=== PATIENT | female | born 1950 | race Caucasian/White ===

== ENCOUNTER 2020-12-23 09:22 | Day surgery (SDC) | payer MEDICARE, OTHER, SELFPAY ==
--- NOTE | 2020-12-23 07:39 | W.ANESPRE ---
General Info Date of Service Date Performed: 12/23/20 Height: 5 ft 5.5 in Weight: 108.862 kg Body Mass Index (BMI): 39.3 Surgical Procedure: Operation Date: 12/23/20 12:40 Proposed Procedures Side Surgeon p Cataract Extraction with IOL Implant Left Virgil Barker MD Meds Allergies and Home Medications Allergies Allergy/AdvReac Type Severity Reaction Status Date / Time No Known Allergies Allergy Unverified 12/23/20 10:03 Home Medication Medication Instructions Recorded multivitamin [Multi Vitamin Daily] 1 ea PO DAILY 04/01/14 vitamin E (dl, acetate) 450 mg 1,000 unit PO DAILY 01/01/19 (1,000 unit) capsule Current Visit Medications: Current Medications Generic Name Dose Route Start Last Admin Trade Name Freq PRN Reason Stop Dose Admin Acetaminophen 1,000 mg 12/23/20 06:00 Acetaminophen 500 Mg Tab PO Q4H PRN PRN Miscellaneous Medication 0 ml 12/23/20 06:00 Prednisolone 1%, Moxifloxacin 0.5%, Nepafenac 0.1% 5ml Btl OS DIRECTED MARIUSZ Miscellaneous Medication 0 ml 12/23/20 06:00 Tropicam./Phenyleph. 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 denies Diabetes mellitus History of adverse reaction to anesthesia Per note during hysterectomy 50 years ago Pt. stated didn't wake up for a long time, it took hours for them to wake me up History of endometrial biopsy Hx of pyoderma gangrenosum Impaired fasting glucose Non-pressure ulcer of lower extremity Osteoporosis Pain in left knee Pain, joint, shoulder, right Pain, lower leg Sleep-wake disorder Urinary tract infection Vitamin D deficiency Surgical History Surgical History History of hysterectomy Pt denies; states I had tubal ligation 12/23/20 Hx of tubal ligation Tobacco Smoking/Tobacco Use Status: Former Tobacco Use Tobacco: How many years used: 25 Alcohol Alcohol Intake: never Substance Use Substance use: Never Substance use type: does not use Prental History History 2 Para Hx # Term Pregnancies 2 Multiple births Hx # Pregnancies Ectopic pregnancies AB induced Hx Number of Living Children AB spontaneous Vital Signs and Lab Results Lab Results Blood Type / Crossmatch: No Data to Display Complete Blood Count: No Data to Display Complete Metabolic Panel: No Data to Display Liver Function Panel: No Data to Display Coagulation Panel: No Data to Display Cardiac Panel: No Data to Display Arterial Blood Gas: No Data to Display Venous Blood Gas: No Data to Display Pancreas Panel: No Data to Display Thyroid Panel: No Data to Display Infectious Disease: No Data to Display Blood Cultures: No Data to Display Toxicology Panel: No Data to Display Anesthesia Assessment and Plan Anesthesia History Personal History: No History of Anesthesia Complications Family History: No Family History of Anesthesia Complications Exercise Tolerance Exercise Tolerance: Metabolic Equivalents>4 Pertinent Negatives Pertinent Negatives: No Symptoms of GERD Cardiac & Pulmonary Exam Cardiac Exam: Normal S1/S2 Heart Sounds Pulmonary Exam: Clear Bilateral Breath Sounds Airway Exam Known Difficult Airway: No Mallampati Class: 2 Mouth Opening: Normal (> 3cm) Thyromental Distance: Greater than 3 cm Neck Range of Motion: Full ROM Neck Circumference: Normal Teeth Condition: Removable Dentures/Plates Upper and Removable Dentures/Plates Lower ASA Classification ASA Score: ASA 3 Emergency Case?: No NPO Status NPO Status: NPO Clears >2 hours, Solids >8 hours Anesthesia Plan Resuscitation Status: Full Code Anesthesia Technique: MAC Anesthesia Airway Planned: Natural Airway Monitors Used: Standard Monitors
[2020-12-23] MEDS: Tropicam./Phenyleph. (1/2.5%) 5 ML BTL OS ×3 (09:54→10:10)
[2020-12-23 10:07] VITALS: BP 140/89; PULSE 89; RESP 16; TEMP 36.3; O2SAT 95
[2020-12-23 10:21] VITALS: BMI 39.3
--- NOTE | 2020-12-23 11:01 | W.ANESPOSTOP ---
Postoperative Evaluation Date, Time and Location Date Performed: 12/23/20 Time Performed: 11:55 Patient Location: Day Surgery Unit Vital Signs Most Recent Imported Vital Signs: Most Recent Vital Signs Temp Pulse Resp BP Pulse Ox 36.3 C L 89 16 140/89 95 12/23/20 10:07 12/23/20 10:07 12/23/20 10:07 12/23/20 10:07 12/23/20 10:07 Most Recent Manually Entered Vital Signs: Adult Blood Pressure: 135/68 Heart Rate: 83 Respirations: 16 Oxygen Saturation (%): 98 Temperature (C): 36.8 C Pain Score (0-10 Scale): 0 Pain Score Most Recent Pain Score: Most Recent Pain Score Pain Level 7 12/23/20 10:07 Assessment Mental Status: Awake (Alert & Oriented to Patient Baseline) Airway and Respiratory Function: Patent airway with normal (patient baseline) respiratory exam Cardiovascular Function: Hemodynamically Stable Hydration Status: Adequately Hydrated Nausea & Vomiting: No Nausea or Vomiting Pain: Pt. Denies Any Pain Peripheral Nerve Block: Other (Local by Dr. Barker)
[2020-12-23] MEDS: Tetracaine 0.5% 4 ML BTL OS (11:30)
[2020-12-23] MEDS: Duovisc Viscoelastic System EACH 1 EACH (11:31)
[2020-12-23] MEDS: Balanced Salt Soln.-PLUS 500 ML BAG (11:31)
[2020-12-23] MEDS: Lidocaine 1% Pres-Free 5 ML VIAL (11:32)
[2020-12-23] MEDS: Lidocaine 2% Jelly 6 ML SYR (11:33)
[2020-12-23] MEDS: Povidone-Iodine Ophth 30 ML BTL (11:34)
[2020-12-23 11:54] VITALS: BP 135/68; PULSE 83; RESP 16; TEMP 36.8; O2SAT 98
[2020-12-23 11:55] VITALS: BP 135/68; PULSE 83; RESP 16; TEMPC 36.8; O2SAT 98
--- NOTE | 2020-12-23 11:55 | PDOC.DSDIS_ITS ---
Discharge Plan Disposition Patient Disposition: HOME Condition: Good Discharge Details Attending Provider: Virgil Barker Primary Care Provider: Brian Vaughn [place] Meds and New Rx's Prescriptions: No Action vitamin E (dl, acetate) 1,000 unit capsule 1,000 unit PO DAILY RF: 0 multivitamin [Daily Multi-Vitamin] 1 EACH tablet 1 ea PO DAILY RF: 0 Discharge Instructions Stand Alone Forms: Post-op Block Cataract, Post-op Topical Cataract, Linn Ganey ([facility]U) Discharge Orders Discharge Orders: Discharge Order (Routine); Ordered 12/23/20 Ordered By: Virgil Barker DS: Diagnosis Discharge Diagnosis (1) Nuclear sclerotic cataract of left eye: Status: Resolved (2) Cortical cataract of left eye: Status: Resolved (3) Posterior subcapsular age-related cataract of left eye: Status: Resolved
--- NOTE | 2020-12-23 11:57 | W.PM.OP ---
Date of service: 12/23/20 Time of Service: 11:57 Operative Note Operative Note DATE OF PROCEDURE: 12/23/20 POST-OP DIAGNOSIS: same PROCEDURE: Cataract extraction using phacoemulsification with intraocular lens implant, left eye SURGEON: Virgil Barker ANESTHESIA TYPE: Local By Surgeon and MAC Refer to Anesthesia Record PATHOLOGY: none sent COMPLICATIONS: None Patient was transported to: same day Patient's condition: stable Implants: Gianni and Gianni Vision / [employer] Tecnis [id number] Indications: Progressive decreased vision due to cataract, left eye Procedure Description: CATARACT SURGERY OPERATIVE REPORT PREOPERATIVE DIAGNOSIS: Nuclear/cortical/posterior subcapsular cataract, left eye POSTOPERATIVE DIAGNOSIS: Same OPERATION: Cataract extraction using phacoemulsification with posterior chamber intraocular lens implant, left eye. IOL: IOL Nursing Department Chairperson/Model: [employer] / JACQUELINE Tecnis [id number] IOL Power: + 22.5 diopters IOL Serial Number: [id number] Optic Diameter: 6.0mm Haptic/Overall Diameter: 13.0mm PHACO INFO: RodMicroarraysurion Vision System with OZil and Active Fluidics Cumulative Dispersed Energy (CDE): 10.15 seconds SURGEON: Virgil Barker MD, DEEP ANESTHESIA: Monitored Anesthesia Care (MAC), with local sub-tenon's anesthetic infiltration COMPLICATIONS: None SPECIMENS: None INDICATIONS FOR PROCEDURE: The patient is a 70-year-old lady with history of diminished visual acuity in her left eye secondary to the development of nuclear/cortical/posterior subcapsular cataract. She is significantly symptomatic that she desired cataract surgery and attempt to improve and maximize her vision. PROCEDURE: The correct surgical eye was identified and marked as the left eye and the pupil was dilated in the preoperative area using mydriatics and cycloplegics. The dilated pupil size was 6.0 mm. She elected to proceed without oral sedation. The patient was brought to the operating room where cardiopulmonary monitoring was instituted and surgical time-out was performed, confirming the correct operative eye and IOL power. Topical anesthesia was administered and ophthalmic povidone-iodine 5% was instilled into the conjunctival fornices. Lidocaine gel was applied to the cornea and the isra-ocular area was prepped with Betadine 10% solution and draped in the usual sterile fashion for intraocular surgery, including an aperture drape. A Tegaderm transparent film dressing was cut in half and used to cover the lashes and lid margins. Care was taken to sequester the lashes and lid margins under the Tegaderm dressing. A lid speculum was placed between the lids of the operative eye and the Susanne-Matty operating microscope was maneuvered into position. Clare scissors were then used to make a conjunctival buttonhole approximately 6mm posterior to the limbus in the inferonasal quadrant. Blunt dissection was carried out to expose bare sclera, and a blunt-tipped sub-tenon?s anesthesia cannula was introduced and passed posteriorly along the globe where non-preserved plain lidocaine was injected into posterior sub-Tenon?s space. A sideport knife was used to make a paracentesis port superior/superiortemporally. Intraocular phenylephrine/lidocaine was injected into the anterior chamber. The anterior chamber was then filled with viscoelastic. A 2.4mm keratome knife was used to create a half-thickness groove at the limbus and then to construct a three-plane near-clear corneal tunnel extending 2.0mm into clear cornea in the temporal position. . A flap was raised on the anterior capsule and capsulorhexis forceps were used to complete a continuous curvilinear capsulorhexis of 5.5 mm. Balanced salt solution was then used to perform cortical cleaving hydrodissection and nuclear hydrodelineation until the lens could be freely rotated within the capsular bag. The lens nucleus was then disassembled and removed within the capsular bag and iris plane using phacoemulsification. Residual cortical material was removed using the 45-degree angled silicone I/A tip with 0.3mm port. The posterior capsule was carefully polished to remove as much residual lens epithelial cells as safely possible. The capsular bag was then inflated and the anterior chamber deepened with viscoelastic. The lens implant described above was inserted into the capsular bag using the JACQUELINE [place] Injector. A Kuglen hook was used to dial the IOL into position. Residual viscoelastic was then removed first from posterior to the IOL, then from the anterior chamber using the I/A handpiece. The lens implant was noted to center nicely within the capsular bag. The incisions were stromally hydrated, and the anterior chamber was reformed using BSS. Then 0.5cc of moxifloxacin 1.0mg/ml were injected into the capsular bag and anterior chamber. The incisions were checked with a Weck spear and found to be secure. Several drops of ophthalmic povidone-iodine 5% were then applied to the eye followed by two drops of Imprimis combination prednisolone/moxifloxacin/nepafenac solution. The drapes were removed and a clear plastic protective eye shield was placed over the eye. The patient was then returned to Same Day Surgery in stable condition.
== END 2020-12-23 12:09 | disposition home or self-care (01) ==
PROVIDERS: PCP Neuromusculoskeletal Medicine & OMM; Visit Provider Ophthalmology
PROC: (CPT 66984; principal; 2020-12-23 12:30)
DX: H25.042 Posterior subcapsular polar age-related cataract, left eye (principal); E11.9 Type 2 diabetes mellitus without complications
CPT/HCPCS: 66984; V2632

== ENCOUNTER 2021-01-06 06:19 | Day surgery (SDC) | payer MEDICARE, OTHER, SELFPAY ==
[2021-01-06] MEDS: Tropicam./Phenyleph. (1/2.5%) 5 ML BTL OD ×3 (06:38→06:51)
[2021-01-06 06:40] VITALS: BP 141/75; PULSE 91; RESP 18; TEMP 36.3; O2SAT 95
--- NOTE | 2021-01-06 07:08 | W.ANESPRE ---
General Info Date of Service Date Performed: 01/06/21 Height: 5 ft 0.5 in Weight: 109.1 kg Body Mass Index (BMI): 46.2 Surgical Procedure: Operation Date: 01/06/21 07:40 Proposed Procedures Side Surgeon p Cataract Extraction with IOL Implant Right Virgil Barker MD Meds Allergies and Home Medications Allergies Allergy/AdvReac Type Severity Reaction Status Date / Time No Known Allergies Allergy Unverified 01/06/21 06:36 Home Medication Medication Instructions Recorded multivitamin [Multi Vitamin Daily] 1 ea PO DAILY 04/01/14 vitamin E (dl, acetate) 450 mg 1,000 unit PO DAILY 01/01/19 (1,000 unit) capsule Current Visit Medications: Current Medications Generic Name Dose Route Start Last Admin Trade Name Freq PRN Reason Stop Dose Admin Acetaminophen 1,000 mg 01/06/21 06:00 Acetaminophen 500 Mg Tab PO Q4H PRN PRN Miscellaneous Medication 0 ml 01/06/21 06:00 Prednisolone 1%, Moxifloxacin 0.5%, Nepafenac 0.1% 5ml Btl OD DIRECTED MARIUSZ Miscellaneous Medication 0 ml 01/06/21 06:00 01/06/21 06:51 Tropicam./Phenyleph. 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 denies Diabetes mellitus History of adverse reaction to anesthesia Per note during hysterectomy 50 years ago Pt. stated didn't wake up for a long time, it took hours for them to wake me up History of endometrial biopsy Hx of pyoderma gangrenosum Impaired fasting glucose Non-pressure ulcer of lower extremity Osteoporosis Pain in left knee Pain, joint, shoulder, right Pain, lower leg Sleep-wake disorder Urinary tract infection Vitamin D deficiency Surgical History Surgical History (Updated 01/06/21 @ 06:36 by Sylvia Prado) History of hysterectomy Pt denies; states I had tubal ligation 12/23/20 Hx of cataract surgery Hx of tubal ligation Tobacco Smoking/Tobacco Use Status: Former Tobacco Use Tobacco: How many years used: 25 Alcohol Alcohol Intake: never Substance Use Substance use: Never Substance use type: does not use Prental History History 2 Para Hx # Term Pregnancies 2 Multiple births Hx # Pregnancies Ectopic pregnancies AB induced Hx Number of Living Children AB spontaneous Vital Signs and Lab Results Vital Signs Most Recent Vital Signs in EMR: Most Recent Vital Signs Temp Pulse Resp BP Pulse Ox 36.3 C L 91 H 18 141/75 H 95 01/06/21 06:40 01/06/21 06:40 01/06/21 06:40 01/06/21 06:40 01/06/21 06:40 Lab Results Blood Type / Crossmatch: No Data to Display Complete Blood Count: No Data to Display Complete Metabolic Panel: No Data to Display Liver Function Panel: No Data to Display Coagulation Panel: No Data to Display Cardiac Panel: No Data to Display Arterial Blood Gas: No Data to Display Venous Blood Gas: No Data to Display Pancreas Panel: No Data to Display Thyroid Panel: No Data to Display Infectious Disease: No Data to Display Blood Cultures: No Data to Display Toxicology Panel: No Data to Display Anesthesia Assessment and Plan Anesthesia History Personal History: No History of Anesthesia Complications Family History: No Family History of Anesthesia Complications Exercise Tolerance Exercise Tolerance: Metabolic Equivalents>4 Pertinent Negatives Pertinent Negatives: No Symptoms of GERD, No Major Cardiovascular Symptoms or Complaints, No Major Pulmonary Symptoms or Complaints and No History of CVA/TIA Cardiac & Pulmonary Exam Cardiac Exam: Normal S1/S2 Heart Sounds Pulmonary Exam: Clear Bilateral Breath Sounds Airway Exam Known Difficult Airway: No Mallampati Class: 2 Mouth Opening: Normal (> 3cm) Thyromental Distance: Greater than 3 cm Neck Range of Motion: Full ROM Neck Circumference: Normal Teeth Condition: Removable Dentures/Plates Upper and Removable Dentures/Plates Lower ASA Classification ASA Score: ASA 2 Emergency Case?: No NPO Status NPO Status: NPO Clears >2 hours, Solids >8 hours Anesthesia Plan Resuscitation Status: Full Code Anesthesia Technique: MAC Anesthesia Airway Planned: Natural Airway Monitors Used: Standard Monitors
[2021-01-06 07:10] VITALS: BMI 46.2
[2021-01-06] MEDS: Lidocaine 1% Pres-Free 5 ML VIAL (07:30)
[2021-01-06] MEDS: Balanced Salt Soln.-PLUS 500 ML BAG (07:32)
[2021-01-06] MEDS: Povidone-Iodine Ophth 30 ML BTL (07:33)
[2021-01-06] MEDS: Duovisc Viscoelastic System EACH 1 EACH (07:33)
[2021-01-06] MEDS: Lidocaine 2% Jelly 6 ML SYR (07:34)
[2021-01-06] MEDS: Tetracaine 0.5% 4 ML BTL OD (07:35)
--- NOTE | 2021-01-06 07:56 | W.PM.DSUDISC ---
Discharge Plan Disposition Patient Disposition: HOME Condition: Good Discharge Details Attending Provider: Virgil Barker Primary Care Provider: Brian Vaughn [place] Meds and New Rx's Prescriptions: No Action vitamin E (dl, acetate) 1,000 unit capsule 1,000 unit PO DAILY RF: 0 multivitamin [Daily Multi-Vitamin] 1 EACH tablet 1 ea PO DAILY RF: 0 Discharge Instructions Stand Alone Forms: Post-op Topical Cataract, Linn Adrian ([facility]) Discharge Orders Discharge Orders: Discharge Order (Routine); Ordered 01/06/21 Ordered By: Virgil Barker DS: Diagnosis Discharge Diagnosis (1) Nuclear sclerotic cataract of right eye: Status: Acute (2) Cortical cataract of right eye: Status: Acute
--- NOTE | 2021-01-06 07:57 | ROE_ITS ---
Date of service: 01/06/21 Time of Service: 07:57 Operative Note Operative Note DATE OF PROCEDURE: 01/06/21 PRE-OP DIAGNOSIS: Nuclear/cortical cataract, right eye POST-OP DIAGNOSIS: same PROCEDURE: Cataract extraction using phacoemulsification with intraocular lens implant, right eye SURGEON: Virgil Barker ANESTHESIA TYPE: Local By Surgeon and MAC Refer to Anesthesia Record ESTIMATED BLOOD LOSS: 0 PATHOLOGY: none sent COMPLICATIONS: None Patient was transported to: same day Patient's condition: stable Implants: Gianni & Gianni/JACQUELINE Tecnis [id number] Indications: Progressive visual loss due to cataract, right eye Procedure Description: CATARACT SURGERY OPERATIVE REPORT PREOPERATIVE DIAGNOSIS: 1. Nuclear/cortical cataract, right eye POSTOPERATIVE DIAGNOSIS: Same OPERATION: 1. Cataract extraction using phacoemulsification with posterior chamber intraocular lens implant, right eye. IOL: IOL Corn Husk Baler/Model: Gianni & Gianni / JACQUELINE Tecnis ZCB00 IOL Power: + 23.0 diopters IOL Serial Number: [id number] Optic Diameter: 6.0mm Haptic/Overall Diameter: 13.0mm PHACO INFO: Rod [employer]IL[employer]ion Vision System with OZil and Active Fluidics Cumulative Dispersed Energy (CDE): 8.89 seconds SURGEON: Virgil Barker MD, DEEP ANESTHESIA: Monitored Anesthesia Care (MAC), with local sub-tenon's anesthetic infiltration COMPLICATIONS: None SPECIMENS: None INDICATIONS FOR PROCEDURE: The patient is a 70-year-old lady with history of diminished visual acuity in her right eye secondary to the development of nuclear and cortical cataract. She has already undergone cataract surgery in the left eye and is doing well postoperatively. She now presents for cataract surgery in the right eye. PROCEDURE: The correct surgical eye was identified and marked as the right eye and the pupil was dilated in the preoperative area using mydriatics and cycloplegics. The dilated pupil size was 7.5 mm. She elected to proceed without oral sedation. The patient was brought to the operating room where cardiopulmonary monitoring was instituted and surgical time-out was performed, confirming the correct operative eye and IOL power. Topical anesthesia was administered and ophthalmic povidone-iodine 5% was instilled into the conjunctival fornices. Lidocaine gel was applied to the cornea and the isra-ocular area was prepped with Betadine 10% solution and draped in the usual sterile fashion for intraocular surgery, including an aperture drape. A Tegaderm transparent film dressing was cut in half and used to cover the lashes and lid margins. Care was taken to sequester the lashes and lid margins under the Tegaderm dressing. A lid speculum was placed between the lids of the operative eye and the Susanne-Matty operating microscope was maneuvered into position. Clare scissors were then used to make a conjunctival buttonhole approximately 6mm posterior to the limbus in the inferonasal quadrant. Blunt dissection was carried out to expose bare sclera, and a blunt-tipped sub-tenon?s anesthesia cannula was introduced and passed posteriorly along the globe where non- preserved plain lidocaine was injected into posterior sub-Tenon?s space. A sideport knife was used to make a paracentesis port inferotemporally. Intraoc ular phenylephrine/lidocaine was injected into the anterior chamber. The anterior chamber was filled with viscoelastic. A 2.4mm keratome knife was used to create a half-thickness groove at the limbus and then to construct a three- plane near-clear corneal tunnel extending 2.0mm into clear cornea superiortemporally. A flap was raised on the anterior capsule and capsulorhexis forceps were used to complete a continuous curvilinear capsulorhexis of 5.0 mm. Balanced salt solution was then used to perform cortical cleaving hydrodissection and nuclear hydrodelineation until the lens could be freely rotated within the capsular bag. The lens nucleus was then disassembled and removed within the capsular bag and iris plane using phacoemulsification. Residual cortical material was removed using the I/A handpiece. The posterior capsule was carefully polished to remove as much residual lens epithelial cells as safely possible. The capsular bag was then inflated and the anterior chamber deepened with viscoelastic. The lens implant described above was inserted into the capsular bag using the JACQUELINE [place] Injector. A Kuglen hook was used to dial the IOL into position. Residual viscoelastic was then removed first from posterior to the IOL, then from the anterior chamber using the I/A handpiece. The lens implant was noted to center nicely within the capsular bag. The incisions were stromally hydrated, and the anterior chamber was reformed using BSS. Then 0.5cc of moxifloxacin 1.0mg/ml were injected into the capsular bag and anterior chamber. The incisions were checked with a Weck spear and found to be secure. Several drops of ophthalmic povidone-iodine 5% were then applied to the eye followed by two drops of Imprimis combination prednisolone/moxifloxacin/nepafenac solution. The drapes were removed and a clear plastic protective eye shield was placed over the eye. The patient was then returned to Same Day Surgery in stable condition.
--- NOTE | 2021-01-06 08:01 | W.ANESPOSTOP ---
Postoperative Evaluation Date, Time and Location Date Performed: 01/06/21 Time Performed: 08:01 Patient Location: Day Surgery Unit Vital Signs Most Recent Imported Vital Signs: Most Recent Vital Signs Temp Pulse Resp BP Pulse Ox 36.3 C L 91 H 18 141/75 H 95 01/06/21 06:40 01/06/21 06:40 01/06/21 06:40 01/06/21 06:40 01/06/21 06:40 Most Recent Manually Entered Vital Signs: Adult Pain Score Most Recent Pain Score: Most Recent Pain Score Pain Level 0 01/06/21 06:40
[2021-01-06 08:05] VITALS: BP 140/88; PULSE 85; RESP 16; TEMP 36.8; O2SAT 97
--- NOTE | 2021-01-06 08:08 | W.ANESPOSTOP ---
Postoperative Evaluation Date, Time and Location Date Performed: 01/06/21 Time Performed: 08:08 Patient Location: Day Surgery Unit Vital Signs Most Recent Imported Vital Signs: Most Recent Vital Signs Temp Pulse Resp BP Pulse Ox 36.8 C 85 16 140/88 97 01/06/21 08:05 01/06/21 08:05 01/06/21 08:05 01/06/21 08:05 01/06/21 08:05 Most Recent Vital Signs Temp Pulse Resp BP Pulse Ox 36.3 C L 91 H 18 141/75 H 95 01/06/21 06:40 01/06/21 06:40 01/06/21 06:40 01/06/21 06:40 01/06/21 06:40 Pain Score Most Recent Pain Score: Most Recent Pain Score Pain Level 0 01/06/21 08:05 Assessment Mental Status: Awake (Alert & Oriented to Patient Baseline) Airway and Respiratory Function: Patent airway with normal (patient baseline) respiratory exam Cardiovascular Function: Hemodynamically Stable Hydration Status: Adequately Hydrated Nausea & Vomiting: No Nausea or Vomiting Pain: Pt. Denies Any Pain Peripheral Nerve Block: Patient did not receive a nerve block
== END 2021-01-06 08:18 | disposition home or self-care (01) ==
PROVIDERS: PCP Neuromusculoskeletal Medicine & OMM; Visit Provider Ophthalmology
PROC: (CPT 66984; principal; 2021-01-06 07:30)
DX: H25.11 Age-related nuclear cataract, right eye (principal); E11.9 Type 2 diabetes mellitus without complications
CPT/HCPCS: 66984; V2632

== ENCOUNTER 2021-09-29 15:51 | Outpatient (REF) | payer MEDICARE, OTHER, SELFPAY ==
--- NOTE | 2021-09-29 13:10 | PAPFT_PTH ---
PATIENT: India Brown LOC: [facility] U#:[id number] AGE/SX: 70/F ROOM: RE09/29/[address]: Alma Archer DO : 1950 BED: DIS: 09/29/2021 SPEC #: [id number] RECD: 09/29/21 17:51 STATUS: AMY REQ #: [id number] LAURA: 09/29/21 13:[address]: Alma Archer DEPT: [facility] Cytology RECD BY: Miryam Paiz ENTERED: 09/29/21 17:51 SP TYPE: PAPFT OTHR DR: Brian Vaughn Tissues: 1 - CX/ENDOCX FOR PAP SMEARS Procedures: PAP THIN PREP/[facility] Screening Comments: [id number] (UNSATISFACTORY FOR EVALUATION)
--- OUTSIDE RECORDS SUMMARY | 2021-09-29 16:26 | XMS_ITS ---
:1950 Author Care Team Providers Name Role Phone FELIZ MOREJON DO Primary Care Provider [phone] Allergies Code Code System Name Reaction Severity Status Onset Ragweed ? ? Active ? Pollen NKDA ? Medications Name Status Start Date Stop Date ? ? CellCept 500 mg tablet Completed 01/31/2021 1 Take 1 tablet twice a day by oral route. cephalexin 500 mg capsule Completed ? 2017 cephalexin 500 mg tablet Completed ? 021 Take 2 tablets every day by oral route. clindamycin HCl 300 mg capsule Completed 07/21/2015 0 07/31/2015 1 (one) Capsule Capsule: every six hours clobetasol 0.05 % topical cream Active ? Not available APPLY A THIN LAYER TO THE AFFECTED AREA(S) BY TOPICAL ROUTE 2 T IMES PER DAY CoQ-10 Completed ? 10/29/2017 cyclobenzaprine 5 mg tablet Completed 09/07/201412/16 1 (one) Tablet: qhs - at bedtime as needed. doxycycline monohydrate 100 mg capsule Completed ? 05/08/2019 1 daily fluticasone propionate 50 Completed ? 2019 mcg/actuation nasal spray,suspension furosemide 20 mg tablet Active ? Not avai lable lidocaine-prilocaine 2.5 %-2.5 % topical cream Completed ? 11/07/2018 topically prn Macrobid 100 mg capsule Completed ? 10/12/19 21 Take 1 capsule every 12 hours by oral route for 7 days. magnesium Completed ? 12/14/2020 165 mg daily multivitamin Completed ? 12/14/2020 daily mupirocin 2 % topical ointment Completed ? 0 10/11/2020 Percocet 5 mg-325 mg tablet Completed 09/05/20152 12/2015 1 (one) Tablet Tablet: qhs - at bedtime prednisone 20 mg tablet Completed ? 01/02/20 18 sulfamethoxazole 800 mg-trimethoprim 160 mg tablet Completed 08/10/2020 08/10/2020 TAKE 1 TABLET BY MOUTH EVERY 12 HOURS FOR 5 DAYS Temovate 0.05 % topical ointment Completed ? 10/11/2020 1 shea Ointment Ointment: bid - twice daily vitamin B complex Completed ? 12/14/2020 1 daily Vitamin C Active ? Not available 1 qd Vitamin D3 Active ? Not available 1 qd zinc Completed ? 12/14/2020 22 mg Problems Name Status Onset Date Source ? 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 Chronic Fatigue Syndrome Active ? History Impacted Cerumen Unknown ? History Urinary Tract Infectious Disease Unknown ? History Non-pressure Ulcer Lower Limb Unknown ? Hi story Spasm Unknown ? History Pain in Lower Limb Unknown ? History Sleep-wake Schedule Disorder Active ? His tory Chest Pain Unknown ? History Impaired Fasting Glycemia Unknown ? Histor y Traumatic or Non-traumatic Injury Unknown ? History Counseling Unknown ? History Adult Health Examination Unknown ? History Clinical Finding Unknown ? History Cellulitis of Right Lower Limb Unknown ? H istory Procedure by Method Unknown ? History Disorder of Soft Tissue Unknown ? History Pain of Right Shoulder Joint Active ? His tory Specialized Medical Examination Unknown ? History Bleeding Unknown ? History Pain in Left Knee Unknown ? History Procedures Date Name Performed by ? 01/06/2021 Cataract Surgery Information not joceline rob 12/23/2020 Surgery of Cataract of Left Eye Informat ion not available 04/17/1976 Tubal Ligation Information not av lable 10/09/2018 MAMMO, Screening, Tomosynthesis, [facility] Radiology (Internal) Bilateral [address] [place] [address] (Work Place) 12/07/2019 XR, Knee, 3 View [facility] Radiology (Internal) [address] [place] [address] (Work Place) 07/14/2020 MAMMO, Screening, Tomosynthesis, [facility] Radiology (Internal) Bilateral [address] [place] [address] (Work Place) 12/14/2020 XR, Foot, 3 or More View [facility] H ospital Radiology (Internal) [address] [place] [id number] (Work Place) Results Lab Results Date Name Specimen Result Interpretation Description Value Range Status Address ? 07/26/2021 HbA1C BLD High Ha1C 6.7 % 4.0-6.0 % [place] (Hemoglobin Hospi licha Lab a1C), Blood (Inte rnal): [address] 07/26/2021 Venipuncture Blood ? Locati Left ? ? P_nc Primary venous on Antecu Care bital [place]: [address], [place] ? ? Blood ? Needle 21g ? ? P_nc Prim emma venous Vacuta Care iner [place]: [address], [place] ? ? Blood ? Number 1 ? ? P_nc Prim emma venous of Care Attempt [place] s: [address], [place] ? ? Blood ? Succes Yes ? ? P_nc Prim emma venous sful Care [place]: [address], [place] ? ? Blood ? Dressi Pressu ? ? P_nc Prim emma venous ng re Care Band-a [place] s: [address], [place] 04/26/2021 HbA1C BLD High Ha1C 6.3 % 4.0-6.0 % Final [place] (Hemoglobin Hospi licha Lab a1C), Blood (Inte rnal): [address] 04/26/2021 Venipuncture ? Locati Right ? ? P_nc Primary on Antecu Care bital [place]: [address], [place] ? ? ? Needle 21g ? ? P_nc Prim emma Vacuta Care iner [place]: [address], [place] ? ? ? Number 1 ? ? P_nc Prim emma of Care Attempt [place] s: [address], [place] ? ? ? Succes Yes ? ? P_nc Prim emma sful Care [place]: [address], [place] ? ? ? Dressi Pressu ? ? P_nc Prim emma ng re Care Band-a [place] s: [address], [place] ? ? ? Initia HJ ? ? P_nc Prim emma ls Care [place]: [address], [place] 01/24/2021 HbA1C BLD High Ha1C 6.8 % 4.0-6.0 % Final [facility] (Hemoglobin Hospi licha Lab a1C), Blood (Inte rnal): [address] 01/24/2021 Venipuncture Blood ? Locati Left ? ? P_nc Primary venous on Antecu Care bital [place]: [address], [place] ? ? Blood ? Needle 21g ? ? P_nc Prim emma venous Vacuta Care iner [place]: [address], [place] ? ? Blood ? Number 1 ? ? P_nc Prim emma venous of Care Attempt [place] s: [address] [facility], [place] ? ? Blood ? Succes Yes ? ? P_nc Prim emma venous sful Care [place]: [address], [place] ? ? Blood ? Dressi Pressu ? ? P_nc Prim emma venous ng re Care Band-a [place] s: [address], [place] 12/14/2020 CRP, High S High Rcrp 1.04 0.10-0.30 Final [facility] Sensitivity, mg/dL mg/dL Hosp ital Lab Serum or Plasma ( Internal): [address] 12/14/2020 Rf (Rheumatoid BLD ? Rf negati negative < F inal [place] Factor), Serum ve < 10 [IU]/mL Hospital Lab 10 (Internal) : [IU]/m [address] 12/14/2020 ESR BLD ? Esr 30 0-30 mm/h Final [facility] (Erythrocyte mm/h Hosp ital Lab Sedimentation (In ternal): Rate), Blood [address] 12/14/2020 MARCIE S ? MARCIE negati negative Final [facility] (Antinuclear Interpr ve Hos pital Lab Antibodies) etation (Int ernal): Screen, Serum [address] 12/14/2020 Anca, Serum S ? Anca negati negative Final [facility] Interpr ve Hospital Lab etation (Internal ): [address] 12/14/2020 Cyclic S ? Cyclic <15.6 <20.0 [facility] Citrullinated Citrull U (negative) Hospital Lab Peptide Ab, inated U (Inte rnal): Quant Peptide [address] Immunoassay, Ab, S [facility] Serum 12/14/2020 Venipuncture Blood ? Locati Left ? ? P_nc Primary venous on Antecu Care bital [place]: [address], [place] ? ? Blood ? Needle 21g ? ? P_nc Prim emma venous Vacuta Care iner [place]: [address], [place] ? ? Blood ? Number 1 ? ? P_nc Prim emma venous of Care Attempt [place] s: [address], [place] ? ? Blood ? Succes Yes ? ? P_nc Prim emma venous sful Care [place]: [address], [place] ? ? Blood ? Dressi Pressu ? ? P_nc Prim emma venous ng re Care Band-a [place] s: [address], [place] 10/10/2020 HbA1C BLD High Ha1C 6.2 % 4.0-6.0 % Final [facility] (Hemoglobin Hospi licha Lab a1C), Blood (Inte rnal): [address] 10/06/2020 Urinalysis, UR ? UA-col yellow pale Final [facility] Dipstick, or yellow Hospita l Lab Reflex Micro (Int ernal): [address] ? ? UR ABNORMA UA-shea hazy clear Final [facility] untry ear Hospital L ab (Internal) : [address] ? ? UR ? UA-spe 1.025 1.003-1.03 [facility] c Grav 5 Hospital L ab (Internal) : [address] ? ? UR ? UA-pH 6.0 4.6-8.0 [facility] ntry [pH] [pH] Hospital L ab (Internal) : [address] ? ? UR ABNORMA UA-aleta trace negative [facility] (Internal) : [address] ? ? UR ? UA-nit negati negative Final [facility] ountry rite ve Hospital ab (Internal) : [address] ? ? UR ? UA-pro negati negative Final [facility] ountry t ve Hospital ab (Internal) : [address] ? ? UR ? UA-glu negati negative Final [facility] ountry c ve [facility] (Internal) : [address] ? ? UR ? UA-ket negati negative Final [facility] ountry one ve [facility] ab (Internal) : [address] ? ? UR ? UA-uro normal normal Final [place] [facility]ha [facility] ab (Internal) : [address] ? ? UR ? UA-vibha negati negative Final [facility] ountry i ve [facility] ab (Internal) : [address] ? ? UR ABNORMA UA-blo modera negative Final [facility] L od te [facility] ab (Internal) : [address] 10/06/2020 Urinalysis, UR ABNORMA UA-WBC 5-10 0-3 [hpf] [facility] Microscopic L [hpf] Hospi licha Lab (Internal) : [address] ? ? UR ABNORMA UA-RBC 10-25 0-2 [hpf] Final [facility] L [hpf] Hospital ab (Internal) : [address] ? ? UR ? UA-demario rare none seen Final [facility] teria [hpf] [hpf] Hospital ab (Internal) : [address] ? ? UR ? UA-epi rare none seen Final [facility] thelial [hpf] [hpf] Hospital Lab (Internal) : [address] ? ? UR ? UA-muc none none seen Final [facility] us seen [hpf] Hospital ab [hpf] (Internal) : [address] ? ? UR ? Amorph rare ? Final [facility] Cryst [hpf] Hospital ab (Internal) : [address] 10/06/2020 Culture ([place] UR ? Final microb ? Snehal l [place] Count), Urine iology Hos pital Lab result (Internal) : s [address] 10/06/2020 Urinalysis, UR ABNORMA UA-WBC 5-10 0-3 [hpf] Fin al [facility] Microscopic L [hpf] Hospi licha Lab (Internal) : [address] ? ? UR ABNORMA UA-RBC 10-25 0-2 [hpf] Final [facility] L [hpf] Hospital L ab (Internal) : [address] ? ? UR ? UA-demario rare none seen Final [facility] teria [hpf] [hpf] Hospital L ab (Internal) : [address] ? ? UR ? UA-epi rare none seen Final [facility] thelial [hpf] [hpf] Hospital Lab (Internal) : [address] ? ? UR ? UA-muc none none seen Final [facility] us seen [hpf] Hospital L ab [hpf] (Internal) : [address] ? ? UR ? Ca Ox rare ? Correcte [place] untry Cryst [hpf] d Hospital L ab (Internal) : [address] 08/22/2020 Colon Cancer Stool ? Cologu negati not Final Exact Screening, jena ve applicable Ne iences Stool Result Laboratori es Reporta (Cologuar d ble Orders Onl y): [address] , Randi 08/10/2020 HbA1C BLD High Ha1C 6.5 % 4.0-6.0 % Final [facility] (Hemoglobin Hospi licha Lab a1C), Blood (Inte rnal): [address] 08/10/2020 Venipuncture ? Locati Left ? ? P_nc Primary on Antecu Care bital [place]: [address], [place] ? ? ? Needle 21g ? ? P_nc Prim emma Vacuta Care iner [place]: [address], [place] ? ? ? Number 1 ? ? P_nc Prim emma of Care Attempt [place] s: [address], [place] ? ? ? Succes Yes ? ? P_nc Prim emma sful Care [place]: [address], [place] ? ? ? Dressi Pressu ? ? P_nc Prim emma ng re Care Band-a [place] s: [address], [place] ? ? ? Initia hj ? ? P_nc Prim emma ls Care [place]: [address], [place] 07/29/2020 Culture, MISC ? Final microb ? Final [facility] Superficial iology Hospi licha Lab Wound result (Internal) : s [address] 05/10/2020 Urinalysis, UR ? UA-col pale pale Final [facility] Dipstick, or yellow yellow Hospita l Lab Reflex Micro (Int ernal): [address] ? ? UR ? UA-shea clear clear Final [facility] ntry ear Hospital L ab (Internal) : [address] ? ? UR ? UA-spe 1.015 1.003-1.03 Final [facility] c Grav 5 Hospital L ab (Internal) : [address] ? ? UR ? UA-pH 6.5 4.6-8.0 Final [facility] ntry [pH] [pH] Hospital L ab (Internal) : [address] ? ? UR ABNORMA UA-aleta trace negative Final [facility] L k Est Hospital L ab (Internal) : [address] ? ? UR ? UA-nit negati negative Final [facility] ountry rite Hospital L ab (Internal) : [address] ? ? UR ? UA-pro negati negative Final [facility] ountry t ve Hospital L ab (Internal) : [address] ? ? UR ? UA-glu negati negative Final [facility] ountry c Hospital L ab (Internal) : [address] ? ? UR ? UA-ket negati negative Final [facility] ountry one Hospital L ab (Internal) : [address] ? ? UR ? UA-uro normal normal Final [place] [facility] Hospital L ab (Internal) : [address] ? ? UR ? UA-vibha negati negative Final [facility] i ve Hospital L ab (Internal) : [address] ? ? UR ABNORMA UA-blo modera negative Final [place] [facility] L od te Hospital L ab (Internal) : [address] 05/10/2020 CMP, Serum or S High g/r 113 74-106 Final [place] Plasma mg/dL mg/dL Hospital L ab (Internal) : [address] ? ? S ? Bun 13 7-17 mg/dL Final [place] [facility] mg/dL Hospital L ab (Internal) : [address] ? ? S ? Crea 0.60 0.52-1.04 Final [facility] mg/dL mg/dL Hospital L ab (Internal) : [address] ? ? S ? Ca 9.9 8.4-10.2 Final [facility] mg/dL mg/dL Hospital L ab (Internal) : [address] ? ? S ? Na 138 137-145 Final [facility] mmol/L mmol/L Hospital L ab (Internal) : [address] ? ? S ? K 4.4 3.5-5.1 Final [facility] mmol/L mmol/L Hospital L ab (Internal) : [address] ? ? S ? Cl 102 98-107 Final [facility] mmol/L mmol/L Hospital L ab (Internal) : [address] ? ? S ? Tco2 29.0 22.0-30.0 Final [facility] mmol/L mmol/L Hospital L ab (Internal) : [address] ? ? S ? Tp 8.2 6.3-8.2 Final [facility] g/dL g/dL Hospital L ab (Internal) : [address] ? ? S ? Alb 4.4 3.5-5.0 Final [facility] g/dL g/dL Hospital L ab (Internal) : [address] ? ? S ? Tbil 0.3 0.2-1.3 Final [facility] mg/dL mg/dL Hospital L ab (Internal) : [address] ? ? S ? Alp 93 U/L 38-126 U/L Final [facility] Hospital L ab (Internal) : [address] ? ? S ? Alt 51 U/L 9-52 U/L Final [facility] unt (Sgpt) Hospital L ab (Internal) : [address] ? ? S High Ast 41 U/L 14-36 U/L Final [facility] ount (Sgot) Hospital L ab (Internal) : [address] 05/10/2020 CBC W/ Auto BLD ? Wbc 7.5 5.0-10.0 Final [facility] Diff 10*3/u 10*3/uL Hospital Lab L (Internal) : [address] ? ? BLD ? Rbc 4.83 4.10-5.30 Final [facility] ountry 10*6/u 10*6/uL Hospital Lab L (Internal) : [address] ? ? BLD ? Hgb 14.3 12.0-16.0 Final [facility] ountry g/dL g/dL Hospital L ab (Internal) : [address] ? ? BLD ? Hct 43.7 % 37.0-47.0 Final [facility] ount % Hospital L ab (Internal) : [address] ? ? BLD ? Mcv 90.5 80.0-96.0 Final [facility] ountry fL fL Hospital L ab (Internal) : [address] ? ? BLD ? Mch 29.6 26.0-32.0 Final [facility] ountry pg pg Hospital L ab (Internal) : [address] ? ? BLD ? Mchc 32.7 31.0-35.0 Final [facility] ountry g/dL g/dL Hospital L ab (Internal) : [address] ? ? BLD ? Rdw 12.8 % 11.5-14.5 Final [facility] ountry % Hospital L ab (Internal) : [address] ? ? BLD ? Plt 262 130-450 Final [facility] ntry 10*3/u 10*3/uL Hospital Lab L (Internal) : [address] ? ? BLD ? Anc 4.23 ? Final [facility] try 10*3/u Hospital L ab L (Internal) : [address] ? ? BLD ? Nlr 1.59 0.00-3.20 Final [facility] L ab (Internal) : [address] ? ? BLD ? Neutro 56.2 % 40.0-75.0 Final [facility] Hospital L ab (Internal) : [address] ? ? BLD ? Lymph 35.3 % 20.0-50.0 Final [facility] Hospital L ab (Internal) : [address] ? ? BLD ? [place] 6.8 % 2.0-10.0 % [facility] L ab (Internal) : [address] ? ? BLD Low Eos 0.9 % 1.0-6.0 % Final [facility] L ab (Internal) : [address] ? ? BLD ? Baso 0.5 % 0.0-1.0 % [facility] L ab (Internal) : [address] ? ? BLD ? Ig 0.3 % 0.0-0.9 % [facility] L ab (Internal) : [address] 05/10/2020 Urinalysis, UR ABNORMA UA-WBC 3-5 0-3 [hpf] Fin al [facility] Microscopic L [hpf] Hospi licha Lab (Internal) : [address] ? ? UR ABNORMA UA-RBC 3-5 0-2 [hpf] [facility] L [hpf] Hospital L ab (Internal) : [address] ? ? UR ? UA-demario rare none seen Final [facility] teria [hpf] [hpf] Hospital L ab (Internal) : [address] ? ? UR ? UA-epi rare none seen Final [facility] thelial [hpf] [hpf] Hospital Lab (Internal) : [address] ? ? UR ? UA-muc none none seen Final [facility] us seen [hpf] Hospital L ab [hpf] (Internal) : [address] [facility] 05/10/2020 HbA1C BLD High Ha1C 6.5 % 4.0-6.0 % Final [facility] (Hemoglobin Hospi licha Lab a1C), Blood (Inte rnal): [address] [facility] 05/10/2020 Culture ([place] UR ? Final microb ? Snehal l [place] Count), Urine iology Hos pital Lab result (Internal) : s [address] [facility] 10/30/2019 HbA1C BLD High Ha1C 6.4 % 4.0-6.0 % Final [facility] (Hemoglobin Hospi licha Lab a1C), Blood (Inte rnal): [address] [facility] 05/08/2019 CRP, High S High Rcrp 0.79 0.10-0.30 Final [facility] Sensitivity, mg/dL mg/dL Hosp ital Lab Serum or Plasma ( Internal): [address] [facility] 05/08/2019 Rf (Rheumatoid BLD - Rf negati negative < F inal [facility] Factor), Serum ve < 10 [IU]/mL Hospital Lab 10 (Internal) : [IU]/m [address] [facility] 05/08/2019 ESR BLD - Esr 27 0-30 mm/h Final [facility] (Erythrocyte mm/h Hosp ital Lab Sedimentation (In ternal): Rate), Blood [address] [facility] 05/08/2019 MARCIE S - MARCIE negati negative Final [facility] (Antinuclear Interpr ve Hos pital Lab Antibodies) etation (Int ernal): Screen, Serum 18 [address] [facility] 05/08/2019 Anca, Serum S - Anca negati negative Final [facility] Interpr ve Hospital Lab etation (Internal ): [address] [facility] 05/08/2019 Cyclic S - Cyclic <15.6 <20.0 Final [facility] Citrullinated Citrull U (negative) Hospital Lab Peptide Ab, inated U (Inte rnal): Quant Peptide [address] Immunoassay, Ab, S Dr [place] Serum 05/08/2019 Venipuncture Blood ? Locati Left ? ? P_nc Primary venous on Antecu Care bital [place]: [address], [place] ? ? Blood ? Needle 21g ? ? P_nc Prim emma venous Vacuta Care iner [place]: [address], [place] ? ? Blood ? Number 2 ? ? P_nc Prim emma venous of Care Attempt [place] s: [address], [place] ? ? Blood ? Succes Yes ? ? P_nc Prim emma venous sful Care [place]: [address], [place] ? ? Blood ? Dressi Pressu ? ? P_nc Prim emma venous ng re Care Band-a [place] s: [address], [place] ? ? Blood ? Initia rs/lk ? ? P_nc Prim emma venous ls Care [place]: [address], [place] 05/06/2019 HbA1C BLD High Ha1C 6.3 % 4.0-6.0 % Final [facility] (Hemoglobin Hospi licha Lab a1C), Blood (Inte rnal): [address] 04/09/2019 CMP, Serum or S - g/r 88 74-106 Final [place] Plasma mg/dL mg/dL Hospital L ab (Internal) : [address] ? ? S - Bun 16 7-17 mg/dL Final [place] mg/dL Hospital L ab (Internal) : [address] ? ? S - Crea 0.60 0.52-1.04 Final [place] [facility] mg/dL mg/dL Hospital L ab (Internal) : [address] ? ? S - Ca 10.1 8.4-10.2 Final [place] [facility] mg/dL mg/dL Hospital L ab (Internal) : [address] ? ? S - Na 138 137-145 Final [facility] mmol/L mmol/L Hospital L ab (Internal) : [address] ? ? S - K 4.0 3.5-5.1 Final [facility] mmol/L mmol/L Hospital L ab (Internal) : [address] ? ? S - Cl 101 98-107 Final [place] [facility] mmol/L mmol/L Hospital L ab (Internal) : [address] ? ? S - Tco2 26.0 22.0-30.0 Final [facility] ountry mmol/L mmol/L Hospital L ab (Internal) : [address] ? ? S - Tp 7.9 6.3-8.2 Final [facility] ntry g/dL g/dL Hospital L ab (Internal) : [address] ? ? S - Alb 4.2 3.5-5.0 Final [facility] ntry g/dL g/dL Hospital L ab (Internal) : [address] ? ? S - Tbil 0.3 0.2-1.3 Final [facility] ntry mg/dL mg/dL Hospital L ab (Internal) : [address] ? ? S - Alp 85 U/L 38-126 U/L Final [facility] Hospital L ab (Internal) : [address] ? ? S - Alt 39 U/L 9-52 U/L Final [facility] unt (Sgpt) Hospital L ab (Internal) : [address] ? ? S High Ast 38 U/L 14-36 U/L Final [facility] ount (Sgot) Hospital L ab (Internal) : [address] 04/09/2019 Venipuncture ? Locati Left ? ? P_nc Primary on Antecu Care bital [place]: [address], [place] ? ? ? Needle 21g ? ? P_nc Prim emma Vacuta Care iner [place]: [address], [place] ? ? ? Number 1 ? ? P_nc Prim emma of Care Attempt [place] lean s s: [address], [place] ? ? ? Succes Yes ? ? P_nc Prim emma sful Care [place]: [address], [place] ? ? ? Dressi Pressu ? ? P_nc Prim emma ng re Care Band-a [place] id s: [address], d [place] ? ? ? Initia kblanc ? ? P_nc Prim emma ls hardlp Care n [place]: [address], [place] 04/09/2019 Urinalysis, ? Color Yellow ? ? P _nc Primary Dipstick, Care Reflex Micro [place] on/[place] s: [address], [place] ? ? ? Appear Cloudy ? ? P_nc Prim emma ance Care [place]: [address], [place] ? ? ? Glucos Normal ? ? P_nc Prim emma e Care [place]: [address], [place] ? ? ? Biliru Negati ? ? P_nc Prim emma bin ve Care [place]: [address], [place] ? ? ? Ketone Negati ? ? P_nc Prim emma s ve Care [place] s: [address], [place] ? ? ? Specif 1.025 ? ? P_nc Prim emma ic Care [place] lean s: [address], [place] ? ? ? Blood Negati ? ? P_nc Prima ry ve Care [place]: [address], [place] ? ? ? Ph 5.5 ? ? P_nc Prima ry Care [place] s: [address], [place] ? ? ? Protei Negati ? ? P_nc Prim emma n ve Care [place] s: [address], [place] ? ? ? Urobil 0.2 ? ? P_nc Prim emma inogen Care [place] s: [address], [place] ? ? ? Nitrit negati ? ? P_nc Prim emma e ve Care [place]: [address], [place] ? ? ? Leukoc Small ? ? P_nc Prim emma yte Care Esteras [place] s: [address], [place] 01/07/2019 Culture ([place] UR - Final microb ? Snehal l [place] [facility]), Urine iology Hos pital Lab result (Internal) : s [address] 12/09/2018 HbA1C BLD High Ha1C 6.5 % 4.0-6.0 % Final [place] (Hemoglobin Hospi licha Lab a1C), Blood (Inte rnal): [address] 12/09/2018 Venipuncture Blood ? Locati Left ? ? P_nc Primary venous on Antecu Care bital [place]: [address], [place] ? ? Blood ? Needle 21g ? ? P_nc Prim emma venous Vacuta Care iner [place]: [address], [place] ? ? Blood ? Number 1 ? ? P_nc Prim emma venous of Care Attempt [place] s: [address], [place] ? ? Blood ? Succes Yes ? ? P_nc Prim emma venous sful Care [place]: [address], [place] ? ? Blood ? Dressi Pressu ? ? P_nc Prim emma venous ng re Care Band-a [place]l el[place] id s: [address], [place] ? ? Blood ? Initia cs ? ? P_nc Prim emma venous ls Care [place]: [address], [place] 11/17/2018 Hepatic S - Tbil 0.3 0.2-1.3 Final [facility] Function Panel, mg/dL mg/dL H ospital Lab Serum (Internal) : [address] ? ? S - Dbil 0.3 0.0-0.3 Final [facility] mg/dL mg/dL Hospital L ab (Internal) : [address] ? ? S - Alp 74 U/L 38-126 U/L Final [facility] Hospital L ab (Internal) : [address] ? ? S High Alt 67 U/L 9-52 U/L [facility] (Sgpt) Hospital L ab (Internal) : [address] ? ? S High Ast 43 U/L 14-36 U/L [facility] (Sgot) [facility] L ab (Internal) : [address] ? ? S - Ggt 26 U/L 12-43 U/L Final [facility] L ab (Internal) : [address] ? ? S - Tp 7.8 6.3-8.2 Final [facility] ntry g/dL g/dL Hospital L ab (Internal) : [address] ? ? S - Alb 4.2 3.5-5.0 Final [facility] ntry g/dL g/dL Hospital L ab (Internal) : [address] 04/02/2018 HbA1C BLD High Ha1C 7.0 % 4.0-6.0 % Final [facility] (Hemoglobin Hospi licha Lab a1C), Blood (Inte rnal): [address] 03/29/2018 CBC W/ Auto BLD - Wbc 7.4 5.0-10.0 Final [facility] Diff 10*3/u 10*3/uL Hospital Lab L (Internal) : [address], [place] ? ? BLD - Rbc 4.93 4.10-5.30 Final [facility] ountry 10*6/u 10*6/uL Hospital Lab L (Internal) : [address] [place] ? ? BLD - Hgb 14.4 12.0-16.0 Final [facility] ountry g/dL g/dL Hospital L ab (Internal) : [address] [place] ? ? BLD - Hct 44.9 % 37.0-47.0 Final [facility] ountry % Hospital L ab (Internal) : [address] [place] ? ? BLD - Mcv 91.1 80.0-96.0 Final [facility] ountry fL fL Hospital L ab (Internal) : [address] [place] ? ? BLD - Mch 29.2 26.0-32.0 Final [facility] ountry pg pg Hospital L ab (Internal) : [address] [place] ? ? BLD - Mchc 32.1 31.0-35.0 Final [facility] ountry g/dL g/dL Hospital L ab (Internal) : [address] [place] ? ? BLD - Rdw 12.9 % 11.5-14.5 Final [facility] ountry % Hospital L ab (Internal) : [address] ? ? BLD - Plt 263 130-450 Final [facility] 10*3/u 10*3/uL Hospital Lab L (Internal) : [address] ? ? BLD - Anc 4.45 ? Final [facility] try 10*3/u Hospital L ab L (Internal) : [address] ? ? BLD - Neutro 60.0 % 40.0-75.0 Final [facility] % Hospital L ab (Internal) : [address] t ? ? BLD - Lymph 30.6 % 20.0-50.0 Final [facility] ountry % Hospital L ab (Internal) : [address] t ? ? BLD - [place] 7.3 % 2.0-10.0 % Final [facility] Hospital L ab (Internal) : [address] ? ? BLD - Eos 1.5 % 1.0-6.0 % Final [facility] Hospital L ab (Internal) : [address] ? ? BLD - Baso 0.3 % 0.0-1.0 % Final [facility] Hospital L ab (Internal) : [address] ? ? BLD - Ig 0.3 % 0.0-0.9 % Final [facility] Hospital L ab (Internal) : [address] 03/29/2018 CMP, Serum or S High g/r 127 74-106 Final [facility] Plasma mg/dL mg/dL Hospital L ab (Internal) : [address] ? ? S - Bun 16 7-17 mg/dL Final [facility] mg/dL Hospital L ab (Internal) : [address] ? ? S - Crea 0.70 0.52-1.04 Final [facility] ount mg/dL mg/dL Hospital L ab (Internal) : [address] ? ? S - Ca 9.6 8.4-10.2 Final [facility] untry mg/dL mg/dL Hospital L ab (Internal) : [address] ? ? S - Na 138 137-145 Final [facility] ntry mmol/L mmol/L Hospital L ab (Internal) : [address] ? ? S - K 4.2 3.5-5.1 Final [facility] ntry mmol/L mmol/L Hospital L ab (Internal) : [address] ? ? S - Cl 100 98-107 Final [facility] try mmol/L mmol/L Hospital L ab (Internal) : [address] t ? ? S High Tco2 31.0 22.0-30.0 Final [facility] ountry mmol/L mmol/L Hospital L ab (Internal) : [address] ? ? S - Tp 7.8 6.3-8.2 Final [facility] ntry g/dL g/dL Hospital L ab (Internal) : [address] t ? ? S - Alb 4.3 3.5-5.0 Final [facility] ntry g/dL g/dL Hospital L ab (Internal) : [address] t ? ? S - Tbil 0.6 0.2-1.3 Final [facility] ntry mg/dL mg/dL Hospital L ab (Internal) : [address] t ? ? S - Alp 80 U/L 38-126 U/L Final [facility] Hospital L ab (Internal) : [address] ? ? S - Alt 52 U/L 9-52 U/L Final [facility] (Sgpt) Hospital L ab (Internal) : [address] ? ? S - Ast 35 U/L 14-36 U/L Final [facility] (Sgot) Hospital L ab (Internal) : [address] 03/29/2018 Lipid Panel, S - Chol 178 50-200 Final [facility] Serum mg/dL mg/dL Hospital L ab (Internal) : [address] ? ? S - Trig 93 10-150 Final [facility] try mg/dL mg/dL Hospital L ab (Internal) : [address] t ? ? S - Hdl 55 40-60 Final [facility] try mg/dL mg/dL Hospital L ab (Internal) : [address] t ? ? S - Ldl 104 0-130 Final [facility] try mg/dL mg/dL Hospital L ab (Internal) : [address] 02/04/2018 Culture, MISC - Final microb ? Final [facility]a Lab Wound result (Internal) : s [address] 10/18/2017 Venipuncture BLD ? Venpn* ? ? Final [facility] Hospital L ab (Internal) : [address] 10/18/2017 CMP, Serum or S High g/r 127 74-106 Final [facility] Plasma mg/dL mg/dL Hospital L ab (Internal) : [address] t ? ? S ? Bun 14 7-17 mg/dL Final [facility] mg/dL Hospital L ab (Internal) : [address] t ? ? S ? Crea 0.70 0.52-1.04 Final [facility] mg/dL mg/dL Hospital L ab (Internal) : [address] t ? ? S ? Ca 9.6 8.4-10.2 Final [facility] mg/dL mg/dL Hospital L ab (Internal) : [address] t ? ? S ? Na 138 137-145 Final [facility] mmol/L mmol/L Hospital L ab (Internal) : [address] t ? ? S ? K 4.1 3.5-5.1 Final [facility] mmol/L mmol/L Hospital L ab (Internal) : [address] t ? ? S ? Cl 100 98-107 Final [facility] mmol/L mmol/L Hospital L ab (Internal) : [address] t ? ? S High Tco2 31.0 22.0-30.0 Final [facility] mmol/L mmol/L Hospital L ab (Internal) : [address] t ? ? S ? Tp 7.6 6.3-8.2 Final [facility] g/dL g/dL Hospital L ab (Internal) : [address] t ? ? S ? Alb 4.1 3.5-5.0 Final [facility] g/dL g/dL Hospital L ab (Internal) : [address] t ? ? S ? Tbil 0.6 0.2-1.3 Final [facility] mg/dL mg/dL Hospital L ab (Internal) : [address] ? ? S ? Alp 78 U/L 38-126 U/L Final [facility] Hospital L ab (Internal) : [address] ? ? S High Alt 56 U/L 9-52 U/L Final [facility] unt (Sgpt) Hospital L ab (Internal) : [address] ? ? S High Ast 39 U/L 14-36 U/L Final [facility] ountry (Sgot) Hospital L ab (Internal) : [address] t 10/18/2017 CBC W/ Auto BLD ? Wbc 7.2 5.0-10.0 Final [facility] Diff 10*3/u 10*3/uL Hospital Lab L (Internal) : [address] t ? ? BLD ? Rbc 4.85 4.10-5.30 Final [facility] ountry 10*6/u 10*6/uL Hospital Lab L (Internal) : [address] ? ? BLD ? Hgb 14.2 12.0-16.0 Final [facility] ountry g/dL g/dL Hospital L ab (Internal) : [address] t ? ? BLD ? Hct 44.0 % 37.0-47.0 Final [facility] ountry % Hospital L ab (Internal) : [address] t ? ? BLD ? Mcv 90.7 80.0-96.0 Final [facility] fL fL Hospital L ab (Internal) : [address] ? ? BLD ? Mch 29.3 26.0-32.0 Final [facility] pg pg Hospital L ab (Internal) : [address] t ? ? BLD ? Mchc 32.3 31.0-35.0 Final [facility] g/dL g/dL Hospital L ab (Internal) : [address] ? ? BLD ? Rdw 13.0 % 11.5-14.5 Final [facility] % Hospital L ab (Internal) : [address] t ? ? BLD ? Plt 272 130-450 Final [facility] ntry 10*3/u 10*3/uL Hospital Lab L (Internal) : [address] ? ? BLD ? Anc 3.52 ? Final [facility] try 10*3/u Hospital L ab L (Internal) : [address] t ? ? BLD ? Neutro 48.7 % 40.0-75.0 Final [facility] Hospital L ab (Internal) : [address] [place] t ? ? BLD ? Lymph 41.9 % 20.0-50.0 Final [facility] Hospital L ab (Internal) : [address] t ? ? BLD ? [place] 6.9 % 2.0-10.0 % Final [facility] Hospital L ab (Internal) : [address], [place] ? ? BLD ? Eos 2.1 % 1.0-6.0 % Final [facility] L ab (Internal) : [address] [place] t ? ? BLD ? Baso 0.3 % 0.0-1.0 % Final [facility] L ab (Internal) : [address], [place] ? ? BLD ? Ig 0.1 % 0.0-0.9 % [facility] L ab (Internal) : [address] 08/06/2017 Venipuncture BLD ? Venpn* ? ? Final [facility] Hospital L ab (Internal) : [address] 08/06/2017 Troponin I, S ? Trop <0.06 0.00-0.06 Final [facility] Serum or Plasma NG/mL NG/mL H ospital Lab (Internal) : [address] 08/06/2017 Partial BLD ? APTT 25 s 22-35 s Final [facility] Thromboplastin (Op) Ho spital Lab Time (Internal) : [address] 08/06/2017 Prothrombin BLD ? Pt 9.8 S 9.1-11.7 S Snehal chau [facility] Hospital L ab (Internal) : [address] ? ? BLD ? Inr 0.9 ? Final [facility] Hospital L ab (Internal) : [address] 08/06/2017 Magnesium, QN, S ? mg 1.8 1.6-2.3 Snehal l [facility] Serum or Plasma mg/dL mg/dL H ospital Lab (Internal) : [address] 08/06/2017 CK (Creatine S ? Cpk 62 U/L 30-135 U/L Fin al [facility] Kinase), Total, H ospital Lab Serum (Internal) : [address] 08/06/2017 CMP, Serum or S High g/r 132 74-106 Final [facility] Plasma mg/dL mg/dL Hospital L ab (Internal) : [address] t ? ? S ? Bun 13 7-17 mg/dL Final [facility] mg/dL Hospital L ab (Internal) : [address] t ? ? S ? Crea 0.70 0.52-1.04 Final [facility] mg/dL mg/dL Hospital L ab (Internal) : [address] t ? ? S ? Ca 10.0 8.4-10.2 Final [facility] mg/dL mg/dL Hospital L ab (Internal) : [address] t ? ? S ? Na 141 137-145 Final [facility] mmol/L mmol/L Hospital L ab (Internal) : [address] t ? ? S ? K 3.9 3.5-5.1 Final [facility] mmol/L mmol/L Hospital L ab (Internal) : [address] t ? ? S ? Cl 102 98-107 Final [facility] mmol/L mmol/L Hospital L ab (Internal) : [address] t ? ? S ? Tco2 28.0 22.0-30.0 Final [facility] mmol/L mmol/L Hospital L ab (Internal) : [address] t ? ? S ? Tp 7.6 6.3-8.2 Final [facility] g/dL g/dL Hospital L ab (Internal) : [address] t ? ? S ? Alb 4.1 3.5-5.0 Final [facility] ntry g/dL g/dL Hospital L ab (Internal) : [address] t ? ? S ? Tbil 0.3 0.2-1.3 Final [facility] ntry mg/dL mg/dL Hospital L ab (Internal) : [address] t ? ? S ? Alp 84 U/L 38-126 U/L Final [facility] Hospital L ab (Internal) : [address] t ? ? S High Alt 66 U/L 9-52 U/L Final [facility] unt (Sgpt) Hospital L ab (Internal) : [address] t ? ? S High Ast 53 U/L 14-36 U/L Final [facility] ount (Sgot) Hospital L ab (Internal) : [address] 08/06/2017 CBC W/ Auto BLD ? Wbc 8.1 5.0-10.0 Final [facility] Diff 10*3/u 10*3/uL Hospital Lab L (Internal) : [address] t ? ? BLD ? Rbc 4.71 4.10-5.30 Final [facility] ountry 10*6/u 10*6/uL Hospital Lab L (Internal) : [address] t ? ? BLD ? Hgb 13.8 12.0-16.0 Final [facility] ountry g/dL g/dL Hospital L ab (Internal) : [address] ? ? BLD ? Hct 41.8 % 37.0-47.0 Final [facility] ountry % Hospital L ab (Internal) : [address] ? ? BLD ? Mcv 88.7 80.0-96.0 Final [facility] ountry fL fL Hospital L ab (Internal) : [address] ? ? BLD ? Mch 29.3 26.0-32.0 Final [facility] pg pg Hospital L ab (Internal) : [address] ? ? BLD ? Mchc 33.0 31.0-35.0 Final [facility] ountry g/dL g/dL Hospital L ab (Internal) : [address] ? ? BLD ? Rdw 13.2 % 11.5-14.5 Final [facility] Hospital L ab (Internal) : [address] ? ? BLD ? Plt 242 130-450 Final [facility] ntry 10*3/u 10*3/uL Hospital Lab L (Internal) : [address] ? ? BLD ? Anc 5.18 ? Final [facility] try 10*3/u Hospital L ab L (Internal) : [address] ? ? BLD ? Neutro 64.4 % 40.0-75.0 Final [facility] % Hospital L ab (Internal) : [address] ? ? BLD ? Lymph 26.3 % 20.0-50.0 Final [facility] Hospital L ab (Internal) : [address] t ? ? BLD ? [place] 7.8 % 2.0-10.0 % Final [facility] Hospital L ab (Internal) : [address] t ? ? BLD Low Eos 0.9 % 1.0-6.0 % Final [facility] Hospital L ab (Internal) : [address] ? ? BLD ? Baso 0.4 % 0.0-1.0 % Final [facility] Hospital L ab (Internal) : [address] t ? ? BLD ? Ig 0.2 % 0.0-0.9 % Final [facility] L ab (Internal) : [address] 10/23/2016 Venipuncture BLD ? Venpn* ? ? Final [facility] Hospital L ab (Internal) : [address] 10/23/2016 BMP, Serum or S High g/r 127 74-106 Final [facility] Plasma mg/dL mg/dL Hospital L ab (Internal) : [address] t ? ? S ? Bun 13 7-17 mg/dL Final [facility] mg/dL Hospital L ab (Internal) : [address] t ? ? S ? Crea 0.70 0.52-1.04 Final [facility] mg/dL mg/dL Hospital L ab (Internal) : [address] t ? ? S ? Ca 9.4 8.4-10.2 Final [facility] mg/dL mg/dL Hospital L ab (Internal) : [address] t ? ? S ? Na 142 137-145 Final [facility] mmol/L mmol/L Hospital L ab (Internal) : [address] t ? ? S ? K 4.4 3.5-5.1 Final [facility] mmol/L mmol/L Hospital L ab (Internal) : [address] t ? ? S ? Cl 102 98-107 Final [facility] mmol/L mmol/L Hospital L ab (Internal) : [address] t ? ? S ? Tco2 28.0 22.0-30.0 Final [facility] mmol/L mmol/L Hospital L ab (Internal) : [address] t 10/23/2016 CBC W/ Auto BLD ? Wbc 6.5 5.0-10.0 Final [facility] Diff 10*3/u 10*3/uL Hospital Lab L (Internal) : [address] t ? ? BLD ? Rbc 4.80 4.10-5.30 Final [facility] 10*6/u 10*6/uL Hospital Lab L (Internal) : [address] t ? ? BLD ? Hgb 14.2 12.0-16.0 Final [facility] g/dL g/dL Hospital L ab (Internal) : [address] t ? ? BLD ? Hct 42.7 % 37.0-47.0 Final [facility] % Hospital L ab (Internal) : [address] t ? ? BLD ? Mcv 89.0 80.0-96.0 Final [facility] fL fL Hospital L ab (Internal) : [address] t ? ? BLD ? Mch 29.6 26.0-32.0 Final [facility] pg pg Hospital L ab (Internal) : [address] t ? ? BLD ? Mchc 33.3 31.0-35.0 Final [facility] ountry g/dL g/dL Hospital L ab (Internal) : [address] ? ? BLD ? Rdw 13.4 % 11.5-14.5 Final [facility] Hospital L ab (Internal) : [address] ? ? BLD ? Plt 239 130-450 Final [facility] ntry 10*3/u 10*3/uL Hospital Lab L (Internal) : [address] ? ? BLD ? Anc 3.50 ? Final [facility] try 10*3/u Hospital L ab L (Internal) : [address] ? ? BLD ? Neutro 53.7 % 40.0-75.0 Final [facility] % Hospital L ab (Internal) : [address] ? ? BLD ? Lymph 34.1 % 20.0-50.0 Final [facility] Hospital L ab (Internal) : [address] t ? ? BLD ? [place] 9.4 % 2.0-10.0 % Final [facility] Hospital L ab (Internal) : [address] t ? ? BLD ? Eos 2.0 % 1.0-6.0 % Final [facility] L ab (Internal) : [address] t ? ? BLD ? Baso 0.5 % 0.0-1.0 % Final [facility] L ab (Internal) : [address] t ? ? BLD ? Ig 0.3 % 0.0-0.9 % Final [facility] L ab (Internal) : [address] t 10/23/2016 D-dimer, Quant, PLASMA High Dimq 0.95 0.00-0.50 F inal [facility] Plasma mg/L mg/L Hospital L ab (Internal) : [address] t 09/01/2016 Venipuncture BLD ? Venpn* ? ? Final [facility] Hospital L ab (Internal) : [address] t 09/01/2016 BMP, Serum or S High g/r 166 74-106 Final [facility] Plasma mg/dL mg/dL Hospital L ab (Internal) : [address] t ? ? S ? Bun 12 7-17 mg/dL Final [facility] mg/dL Hospital L ab (Internal) : [address] t ? ? S ? Crea 0.90 0.52-1.04 Final [facility] mg/dL mg/dL Hospital L ab (Internal) : [address] t ? ? S ? Ca 9.2 8.4-10.2 Final [facility] mg/dL mg/dL Hospital L ab (Internal) : [address] t ? ? S Low Na 136 137-145 Final [facility] mmol/L mmol/L Hospital L ab (Internal) : [address] ? ? S ? K 3.9 3.5-5.1 Final [facility] mmol/L mmol/L Hospital L ab (Internal) : [address] ? ? S ? Cl 100 98-107 Final [facility] try mmol/L mmol/L Hospital L ab (Internal) : [address] t ? ? S ? Tco2 26.0 22.0-30.0 Final [facility] mmol/L mmol/L Hospital L ab (Internal) : [address] 09/01/2016 CBC W/ Auto BLD High Wbc 12.7 5.0-10.0 Final [facility] Diff 10*3/u 10*3/uL Hospital Lab L (Internal) : [address] t ? ? BLD ? Rbc 4.74 4.10-5.30 Final [facility] 10*6/u 10*6/uL Hospital Lab L (Internal) : [address] t ? ? BLD ? Hgb 14.3 12.0-16.0 Final [facility] g/dL g/dL Hospital L ab (Internal) : [address] t ? ? BLD ? Hct 41.5 % 37.0-47.0 Final [facility] % Hospital L ab (Internal) : [address] ? ? BLD ? Mcv 87.6 80.0-96.0 Final [facility] fL fL Hospital L ab (Internal) : [address] ? ? BLD ? Mch 30.2 26.0-32.0 Final [facility] ountry pg pg Hospital L ab (Internal) : [address] ? ? BLD ? Mchc 34.5 31.0-35.0 Final [facility] ount g/dL g/dL Hospital L ab (Internal) : [address] ? ? BLD ? Rdw 12.7 % 11.5-14.5 Final [facility] ount % Hospital L ab (Internal) : [address] ? ? BLD ? Plt 211 130-450 Final [facility] ntry 10*3/u 10*3/uL Hospital Lab L (Internal) : [address] ? ? BLD ? Anc 10.15 ? Final [facility] try 10*3/u Hospital L ab L (Internal) : [address] ? ? BLD High Neutro 79.8 % 40.0-75.0 Final [facility] % Hospital L ab (Internal) : [address] ? ? BLD Low Lymph 11.2 % 20.0-50.0 Final [facility] Hospital L ab (Internal) : [address] ? ? BLD ? [place] 8.3 % 2.0-10.0 % Final [facility] Hospital L ab (Internal) : [address] ? ? BLD Low Eos 0.1 % 1.0-6.0 % Final [facility] Hospital L ab (Internal) : [address] ? ? BLD ? Baso 0.2 % 0.0-1.0 % Final [facility] Hospital L ab (Internal) : [address] ? ? BLD ? Ig 0.4 % 0.0-0.9 % Final [facility] Hospital L ab (Internal) : [address] 09/01/2016 Culture, Urine UR ? Final microb ? Final [facility] iology Hospital L ab result (Internal) : s [address] 09/01/2016 sensitivities[I MISC ? Sens* ? ? Snehal l [facility] ] Hospital L ab (Internal) : [address] 09/01/2016 Urinalysis, UR ABNORMA UA-WBC >100 0-3 [hpf] [facility] Microscopic L [hpf] Hospi licha Lab (Internal) : [address] t ? ? UR ABNORMA UA-RBC 3-5 0-2 [hpf] [facility] [hpf] Hospital L ab (Internal) : [address] ? ? UR ABNORMA UA-demario modera none seen Final [facility] teria te [hpf] Hospital L ab [hpf] (Internal) : [address] t ? ? UR ABNORMA UA-epi modera none seen Final [facility] thelial te [hpf] Hospital Lab [hpf] (Internal) : [address] t ? ? UR ABNORMA UA-muc rare none seen Final [facility] us [hpf] [hpf] Hospital L ab (Internal) : [address] 09/01/2016 Urinalysis, UR ? UA-col yellow pale Final [facility] Dipstick, or yellow Hospita l Lab Reflex Micro (Int ernal): [address] ? ? UR ABNORMA UA-shea hazy clear Final [facility] Hospital L ab (Internal) : [address] t ? ? UR ? UA-spe 1.020 1.003-1.03 Final [facility] Grav 5 Hospital L ab (Internal) : [address] t ? ? UR ? UA-pH 6.5 4.6-8.0 Final [facility] ntry [pH] [pH] Hospital L ab (Internal) : [address] t ? ? UR ABNORMA UA-aleta modera negative Final [facility] k Est te Hospital L ab (Internal) : [address] t ? ? UR ? UA-nit negati negative [facility] (Internal[facility] : [address] ? ? UR ABNORMA UA-pro 1+ negative Final [facility] Hospital L ab (Internal) : [address] ? ? UR ? UA-glu negati negative [facility] L ab (Internal) : [address] ? ? UR ABNORMA UA-ket trace negative Final [facility] one Hospital L ab (Internal) : [address] ? ? UR ? UA-uro normal normal [facility] L ab (Internal) : [address] ? ? UR ? UA-vibha negati negative Final [facility] ve Hospital L ab (Internal) : [address] ? ? UR ABNORMA UA-blo trace negative Final [facility] L od Hospital L ab (Internal) : [address] ? Venipuncture ? Locati Left ? ? P_n c Primary on Hand Care [place] s: [address], [place] ? ? ? Needle 23g ? ? P_nc Prim emma Butter Care fly [place] el[place] s: [address], [place] ? ? ? Number 2 ? ? P_nc Prim emma of Care Attempt [place] lean s s: [address], [place] ? ? ? Succes Yes ? ? P_nc Prim emma sful Care [place] el[place] s: [address], [place] ? ? ? Dressi Pressu ? ? P_nc Prim emma ng re Care Band-a [place] elizabeth id s: [address], [place] ? ? ? Initia hj ? ? P_nc Prim emma ls Care [place] el[place] s: [address], [place] ? Venipuncture ? Locati Right ? ? P_n c Primary on Antecu Care bital [place] s: [address], [place] ? ? ? Needle 21g ? ? P_nc Prim emma Vacuta Care iner [place] el[place] s: [address], [place] ? ? ? Number 1 ? ? P_nc Prim emma of Care Attempt [place] s s: [address], [place] ? ? ? Succes Yes ? ? P_nc Prim emma sful Care [place] elizabeth s: [address], [place] ? ? ? Dressi Pressu ? ? P_nc Prim emma ng re Care Band-a [place] elizabeth id s: [address], [place] ? ? ? Initia HJ ? ? P_nc Prim emma ls Care [place] elizabeth s: [address], [place] ? Venipuncture ? Locati Left ? ? P_n c Primary on Antecu Care bital [place] el[place] s: [address] [address], [place] ? ? ? Needle 21g ? ? P_nc Prim emma Vacuta Care iner [place]: [address], [place] ? ? ? Number 1 ? ? P_nc Prim emma of Care Attempt [place]: [address], [place] ? ? ? Succes Yes ? ? P_nc Prim emma sful Care [place]: [address], [place] ? ? ? Dressi Pressu ? ? P_nc Prim emma ng re Care Band-a [place]: [address], [place] ? ? ? Initia hj ? ? P_nc Prim emma ls Care [place]: [address], [place] ? Urinalysis, ? Color Yellow ? ? P_nc Primary Dipstick, Care Reflex Micro [place] on/[place] s: [address], [place] ? ? ? Appear Cloudy ? ? P_nc Prim emma ance Care [place]: [address], [place] ? ? ? Glucos Normal ? ? P_nc Prim emma e Care [place]: [address], [place] ? ? ? Biliru Negati ? ? P_nc Prim emma bin ve Care [place]: [address], [place] ? ? ? Ketone Negati ? ? P_nc Prim emma s ve Care [place]: [address], [place] ? ? ? Specif 1.020 ? ? P_nc Prim emma ic Care [place]: [address], [place] ? ? ? Blood Modera ? ? P_nc Prima ry te Care [place]: [address], [place] ? ? ? Ph 6.5 ? ? P_nc Prima ry Care [place]: [address], [place] ? ? ? Protei 1+ ? ? P_nc Prim emma n Care [place]: [address], [place] ? ? ? Urobil 0.2 ? ? P_nc Prim emma inogen Care [place]: [address], [place] ? ? ? Nitrit negati ? ? P_nc Prim emma e ve Care [place]: [address], [place] ? ? ? Leukoc Modera ? ? P_nc Prim emma yte te Care [place]ster[place]: [address], [place] ? Venipuncture ? Locati Left ? ? P_n c Primary on Antecu Care bital [place]: [address], [place] ? ? ? Needle 21g ? ? P_nc Prim emma Vacuta Care iner [place]: [address], [place] ? ? ? Number 1 ? ? P_nc Prim emma of Care Attempt [place]: [address], [place] ? ? ? Succes Yes ? ? P_nc Prim emma sful Care [place]: [address], [place] ? ? ? Dressi Pressu ? ? P_nc Prim emma ng re Care Band-a [place] id s: [address], [place] ? ? ? Initia LMK ? ? 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 06/28/2021 Pain in Right Foot; Dysfunction of Eusta chian Tube; Poor Short-term Memory Feliz Morejon, DO: [address], [place] [address], Ph. 04/26/2021 Pyoderma Gangrenosum; Type 2 Diabetes Me llitus; Overweight; Impacted Cerumen in Right Ear Feliz Morejon, DO: [address] [facility], [place] [address], Ph. 01/24/2021 Type 2 Diabetes Mellitus; Pyoderma Gangr enosum Feliz Morejon, DO: [address] [facility], [place] [address], Ph. 12/14/2020 Pre-surgery Evaluation; Joint Pain; Pain in Right Foot Feliz Morejon, DO: [address] [facility], [place] [address], Ph. 10/11/2020 Pyoderma Gangrenosum; Type 2 Diabetes Me llitus; Urinary Tract Infectious Disease; Hearing Loss Feliz Morejon, DO: [address] [facility], [place] [address], Ph. 08/10/2020 Pyoderma Gangrenosum; Screening Colonosc opy; Type 2 Diabetes Mellitus without Complication Feliz Morejon, DO: [address] [facility], [place] [address], Ph. 07/29/2020 Pyoderma Gangrenosum Feliz Morejon, DO: [address] [facility], [place] [address], Ph. 05/10/2020 Influenza Vaccine Needed; Type 2 Diabete s Mellitus; Pyoderma Gangrenosum; Dysuria; Overweight Feliz Morejon, DO: [address] [facility], [place] [address], Ph. Social History Tobacco Smoking Status Former Smoker Notes: quit 20 05 Vaccine List Vaccine Type pneumococcal conjugate PCV 13 04/02/2018?0.5 mL Tdap 04/07/2009 tetanus toxoid, adsorbed 03/21/2014 Plan of Care Reminders Provider Appointments None ? ? recorded. Lab None ? ? recorded. Referral None ? ? recorded. Procedures None ? ? recorded. Surgeries None ? ? recorded. Imaging None ? ? recorded. Vitals 07/26/2021 10:00AM Follow Up 20 Weight Blood Pressure 107.95 kg 118/78 mm[Hg] 06/28/2021 10:20AM Acute 20 Height Weight BMI Blood Pressure 166.37 cm 109.77 kg 39.7 kg/m2 130/84 mm[Hg] 04/26/2021 09:00AM Follow Up 20 Height Weight BMI Blood Pressure 166.37 cm 107.05 kg 38.7 kg/m2 136/80 mm[Hg] 01/24/2021 10:00AM Follow Up 20 Height Weight BMI Blood Pressure 166.37 cm 108.86 kg 39.3 kg/m2 140/80 mm[Hg] 12/14/2020 01:40PM Preop Clearance 20 Height Weight BMI Blood Pressure 166.37 cm 108.86 kg 39.3 kg/m2 138/84 mm[Hg] 10/11/2020 03:00PM Follow Up 20 Height Weight Blood Pressure 166.37 cm 122/80 mm[Hg] 08/10/2020 01:40PM Follow Up 20 Height Weight BMI Blood Pressure 166.37 cm 107.05 kg 38.7 kg/m2 126/84 mm[Hg] 05/10/2020 02:20PM Follow Up 20 Height Weight BMI Blood Pressure 166.37 cm 106.4 kg 38.4 kg/m2 130/80 mm[Hg] 12/07/2019 11:00AM Acute 20 Height Weight BMI Blood Pressure 166.37 cm 107.5 kg 38.8 kg/m2 146/92 mm[Hg] 11/06/2019 10:00AM Follow Up 20 Height Weight BMI Blood Pressure 166.37 cm 107.05 kg 38.7 kg/m2 128/84 mm[Hg] 05/08/2019 10:00AM Follow Up 20 Height Weight BMI Blood Pressure 166.37 cm 106.14 kg 38.3 kg/m2 132/72 mm[Hg] 04/09/2019 01:00PM AWV 20 Height Weight BMI Blood Pressure 166.37 cm 105.23 kg 38 kg/m2 133/72 mm[Hg] 01/07/2019 10:20AM Acute 20 Height Weight BMI Blood Pressure 166.37 cm 105.23 kg 38 kg/m2 138/100 mm[Hg] 12/09/2018 10:20AM Acute 20 Height Weight BMI Blood Pressure 166.37 cm 107.95 kg 39 kg/m2 132/84 mm[Hg] 11/07/2018 10:00AM Follow Up 20 Height Weight BMI Blood Pressure 166.37 cm 108.86 kg 39.3 kg/m2 124/84 mm[Hg] 04/02/2018 09:40AM AWV 20 Height Weight BMI Blood Pressure 166.37 cm 107.5 kg 38.8 kg/m2 130/86 mm[Hg] 02/04/2018 04:00PM Acute 20 Height Weight BMI Blood Pressure 166.37 cm 107.05 kg 38.7 kg/m2 134/84 mm[Hg] 01/13/2018 09:30AM Acute 30 Height Weight BMI Blood Pressure 166.37 cm 107.95 kg 39 kg/m2 126/86 mm[Hg] 01/01/2018 09:20AM Follow Up 20 Height Weight BMI Blood Pressure 166.37 cm 109.32 kg 39.5 kg/m2 130/88 mm[Hg] 10/29/2017 09:20AM Follow Up 20 Height Weight BMI Blood Pressure 166.37 cm 107 kg 38.7 kg/m2 132/84 mm[Hg] 08/08/2017 Blood Pressure 140/88 mm[Hg] 08/08/2017 Weight 106.85 kg 11/16/2016 Weight Blood Pressure 109.5 kg 130/80 mm[Hg] 11/14/2016 Height Weight Blood Pressure 166.37 cm 109.41 kg 126/84 mm[Hg] 10/23/2016 Height Weight Blood Pressure 166.37 cm 110.68 kg 124/78 mm[Hg] 10/08/2016 Weight Blood Pressure 110.68 kg 138/86 mm[Hg] 09/19/2016 Height Weight Blood Pressure 166.37 cm 110.34 kg 116/84 mm[Hg] 07/03/2016 Blood Pressure 118/76 mm[Hg] 07/03/2016 Weight 109.32 kg 05/02/2016 Height Weight Blood Pressure 166.37 cm 108.41 kg 140/84 mm[Hg] 03/07/2016 Blood Pressure 128/86 mm[Hg] 03/07/2016 Weight 105.69 kg 02/01/2016 Weight 105.23 kg 02/01/2016 Blood Pressure (1) 138/90 mm[Hg] (2) 146/88 mm[Hg] 11/08/2015 Weight 107.95 kg 11/08/2015 Blood Pressure 138/92 mm[Hg] 09/28/2015 Height Weight Blood Pressure 166.37 cm 107.5 kg 130/86 mm[Hg] 08/23/2015 Blood Pressure 120/86 mm[Hg] 07/27/2015 Height Weight Blood Pressure 166.37 cm 108.86 kg 132/84 mm[Hg] 07/21/2015 Height Weight Blood Pressure 166.37 cm 108.64 kg 134/90 mm[Hg] 07/15/2015 Height Weight Blood Pressure 166.37 cm 109.54 kg 120/80 mm[Hg] 06/30/2015 Height Weight Blood Pressure 166.37 cm 107.95 kg 128/88 mm[Hg] 03/15/2015 Height Weight Blood Pressure 166.37 cm 106.59 kg (1) 142/94 mm[Hg] (2) 122/82 mm[Hg] 01/04/2015 Height Weight Blood Pressure 166.37 cm 106.37 kg 112/84 mm[Hg] 09/07/2014 Height Weight Blood Pressure 166.37 cm 106.59 kg (1) 132/82 mm[Hg] (2) 138/90 mm[Hg] 08/18/2014 Weight Blood Pressure 105.69 kg 132/88 mm[Hg] 07/19/2014 Height Weight Blood Pressure 167.64 cm 105.94 kg 120/80 mm[Hg] 06/24/2014 Weight 105.23 kg 06/24/2014 Blood Pressure 126/84 mm[Hg] 06/14/2014 Blood Pressure 126/80 mm[Hg] 06/14/2014 Weight 105.23 kg 03/29/2014 Weight 103.87 kg 03/29/2014 Blood Pressure 136/92 mm[Hg]
--- OUTSIDE RECORDS SUMMARY | 2021-09-29 16:26 | XMS_ITS | Encounter Summary ---
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 She is done a good job of taking care of this. Lengthy discussion about this is a chronic inflammatory disease, and yes it is an autoimmune disease, how ever I think control of her diabetes significantly improves the pyoderma. Not alexis further to do for the pyoderma today but emphasized the need to control the diabe estevan 2. Type 2 diabetes mellitus Lengthy discussion again about low-carb diet. She is frustrated that she cannot lose weight. Her A1c is quite goo d so she does a decent job controlling the diabetes but she could do better. I have asked that she keep a food journal of everything goes normal for the next 2 we eks. At that point she can either submit or make an appointment come back in and we will discuss it. She states that she eats no carbohydrates and yet the same breath wi ll tell me she eats a lot of fruits which tells me she does not really understand the difference was between the 3 macronutrient groups despite the fact th at we have talked about this extensively. She is not interested in seeing a nutritioni st. I think if she brings in the food journal we can go over it will help considerably . She is due for A1c today. ? HbA1c (hemoglobin A1c), bl ood ? venipuncture Discussion Note: None recorded.Patient educational handouts: No information available. Plan of Care Reminders Provider Appointments Follow up 20 Ro manny S 11/01/2021 DO Roderick 9:00AM Lab HbA1C [place] Count ry (Hemoglobin a1C), Blood 07/26/2021 Hospital Lab (Internal) ? Venipuncture P_nc Primary 07/26/2021 Care [place] Referral None recorded. ? ? Procedures None recorded. ? ? Surgeries None recorded. ? ? Imaging None recorded. ? ? Medications Name Start Date ? ? clobetasol 0.05 % topical cream ? APPLY A THIN LAYER TO THE AFFECTED AREA(S) BY TOPICAL ROUTE 2 TIMES PER DAY Vitamin C ? 1 qd Vitamin D3 ? 1 qd Medications Administered None recorded. Vitals Weight Blood Pressure 237 lbs 16 oz 118/78 mm[Hg] Results Lab Results Date Name Specimen Result Interpretation Description Value Range Status Address ? 07/26/2021 HbA1C BLD High Ha1C 6.7 % 4.0-6.0 Final [place] (Hemoglobin % Count ry a1C), Blood [facility] ([facility] : [address], [place] 07/26/2021 Venipuncture Blood ? Location Left ? ? P_nc Primary venous Antecubital Care [place]: [address], [place] ? ? Blood ? Needle 21g ? ? P_nc Prim emma venous Vacutainer Care [place]: [address], [place] ? ? Blood ? Number of 1 ? ? P_nc P rimary venous Attempts Care [place]: [address], [place] ? ? Blood ? Successful Yes ? ? P_nc Primary venous Care [place]: [address], [place] ? ? Blood ? Dressing Pressure ? ? P_nc Primary venous Band-aid Care Applied [place]: [address], [place] Allergies Code Code System Name Reaction Severity Onset Ragweed Pollen ? ? ? NKDA ? ? ? Problems Name Status Onset Date Source ? 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 Chronic Fatigue Syndrome Active ? History Sleep-wake Schedule Disorder Active ? His tory Pain of Right Shoulder Joint Active ? His tory Procedures Date Name Performed by ? 01/06/2021 Cataract Surgery Information not addis rivas 12/23/2020 Surgery of Cataract of Left Eye Informat ion not available 04/17/1976 Tubal Ligation Information not addis rivas Vaccine List Vaccine Type pneumococcal conjugate PCV 13 04/02/2018?0.5 mL Tdap 04/07/2009 tetanus toxoid, adsorbed 03/21/2014 Social History Tobacco Smoking Status Former Smoker Notes: quit 03 11 What was the date of your most recent 10/11/2020 tobacco screening? What is your code status? 0 Functional Status Unknown. Past Encounters 07/26/2021 Pyoderma Gangrenosum; Type 2 Diabetes Me llitus Brian Vaughn, DO: [address] [facility], [place] [address], Ph. 06/28/2021 Pain in Right Foot; Dysfunction of Eusta chian Tube; Poor Short-term Memory Brian Vaughn, DO: [address] [facility], [place] [address], Ph. History of Present Illness ? Lower Leg_ Reported By: Patient HPI: Location: left; History of r ight leg lesion. Quality: constant. Severity: moderate. Timing: chronic; Chronic in that she has history of pyoderma gangrenosum. Associ ated Symptoms: no numbness, no tingling, swelling, redness, warmth Notes: <div>Symptoms have improved. </div> ? Podiatry Foot Reported By: Patient HPI: Location: right. Quality: ac alexis. Duration: 9 months. Timing: chronic. Context: cannot identify. Al leviating Factors: sitting. Aggravating Factors: standing, walking, ROM, weight bearing. Associated Symptoms: no numbness, no tingling, swell ing Notes: <div>Intermittent. Comes and goes. Same pain she had this past summer when we had obtained x-rays. </div> ? Diabetes F/U Reported By: Patient HPI: Review finger sticks: ; Krystle ent does not check fasting sugars. Labs: last A1C result: 6.3% drawn on 04/26/2021. Context: ; Patient is not on medication for diabetes. Ass ociated Symptoms: no dizziness, no sweats, no confusion, no increased t edil, no increased appetite, no numbness of feet Notes: <p>
</p> Note: <p>Pyoderma Gangrenosum. </p>Review of Systems: ROS as noted in the HPI Review of Systems None recorded. Physical Exam ? Comprehensive PE (male) Reported By: Patient Constitutional: General Appearance: healthy- appearing, well-developed, overweight. Level of Distress: no appare nt distress. Ambulation: ambulating normally Respiratory: Respiratory effort: unlabore d respirations, no use of accessory muscles. RUL Auscultation: b reath sounds normal, good air movement, clear to auscultation except as noted, no wheezing, no rales/crackles, no rhonchi. RLL Auscultation: breath sounds normal, good air movement, clear to auscultation except as noted, no wheezing, no rales/crackles, no rhonchi. DILLON Auscultation: breath sounds normal, good air move ment, clear to auscultation except as noted, no wheezing, no rales /crackles, no rhonchi. LLL Auscultation: breath sounds normal, good a ir movement, clear to auscultation except as noted, no wheezing, no ra les/crackles, no rhonchi Cardiovascular: Apical Impulse: not displace d. Heart Auscultation: regular rate and rhythm (RRR), normal S1, nor mal S2, no murmurs, no rubs, no gallops. Neck vessels: no carotid bru its. Pulses including femoral / pedal: normal throughout Skin: Inspection and palpation: ; Scarring left behind by the pyoderma gangrenosum but no sign of a ctive infection or inflammation Neurologic: Orientation: oriented to per son, place, time and situation. Memory: recent memory normal, remote memory normal Psychiatric: Insight: good insight, good judgment. Mental Status: normal mood, normal affect
== END 2021-09-29 15:52 | disposition home or self-care (01) ==
LOC: LBN 15:51
PROVIDERS: PCP Neuromusculoskeletal Medicine & OMM; Visit Provider Obstetrics & Gynecology
DX: Z12.4 Encounter for screening for malignant neoplasm of cervix (principal); R87.615 Unsatisfactory cytologic smear of cervix
CPT/HCPCS: 88142

== ENCOUNTER → 2021-11-03 01:24 | Outpatient (CLI) | payer MEDICARE, OTHER, SELFPAY ==
--- NOTE | 2021-11-03 08:30 | DI.US_ITS ---
Exam(s) US PELVIS TRANSVAGINAL EXAM: US PELVIS TRANSVAGINAL CLINICAL HISTORY: check stripe, POSTMENOPAUSAL BLEEDING, N95.0. TECHNIQUE: Transabdominal and transvaginal pelvic ultrasound was performed using standard protocol. COMPARISON: No exams were available for comparison FINDINGS: KIDNEYS: Kidneys are symmetric in size. No evidence of renal calculi. No evidence of hydronephrosis. No renal mass or cyst identified. UTERUS: Position: Anteverted. Size: 9.0 long by 4.7 AP by 5.5 transverse cm Endometrium: 1.8 cm. This number includes both the endometrium and fluid within the canal. However, the endometrial stripe is thickened, measuring at least 14 mm. There also nodular densities projecti ng into the fluid from the endometrial stripe. Myometrium: Unremarkable. Cervix: Unremarkable. OVARIES: The right ovary was not visualized transabdominally or transvaginally. Left: 2.1 x 1.2 x 1.6 cm Cyst or mass: No suspicious cystic or solid masses. There is a 3.6 x 1.5 x 3.1 cm fluid-filled structure adjacent to the left ovary and uterus. DOPPLER: Color: Symmetric and uniform flow to left over. No hyperemia. CUL-DE-SAC: Free fluid: None. Other: None. IMPRESSION: 1. Normal sonographic appearance of the kidneys. 2. Thickened irregular endometrial stripe. Small nodule arise from the endometrium and project into the fluid within the canal. Neoplasm cannot be excluded. Hyperplasia and polyp should also be consi dered 3. 3.6 cm tubular fluid collection adjacent to the left ovary and uterus. This is non-specific this may represent a paraovarian cyst. Hydrosalpinx cannot be excluded. 4. An MRI of the pelvis may be considered for further evaluation in this patient. Tissue sampling of the endometrial stripe should also be considered. DATA REPOSITORY:
== END ==
PROVIDERS: PCP Neuromusculoskeletal Medicine & OMM; Visit Provider Obstetrics & Gynecology
DX: N95.0 Postmenopausal bleeding (principal); D26.1 Other benign neoplasm of corpus uteri; R93.89 Abnormal findings on diagnostic imaging of other specified body structures; N83.292 Other ovarian cyst, left side
CPT/HCPCS: 76830; 76856

== ENCOUNTER → 2023-04-25 01:24 | Outpatient (CLI) | payer MEDICARE, OTHER, SELFPAY ==
--- NOTE | 2023-04-25 15:30 | DI.US_ITS ---
Exam(s) US PELVIS TRANSVAGINAL EXAM: US PELVIS TRANSVAGINAL CLINICAL HISTORY: check stripe N95.0 POSTMENOPAUSAL BLEEDING TECHNIQUE: Ultrasound of the pelvis was performed both transabdominal and transvaginal. COMPARISON: US US PELVIS TRANSVAGINAL from 11/03/2021 FINDINGS: UTERUS: The uterus is significantly abnormal. Measures 9.2 cm length x 5.1 cm AP x 0.6 cm wide. There are large confluent vascular hyperechoic masses now filling the uterine endometrial canal, susp icious for malignancy.These feel the entire endometrial cavity and the endometrium is significantly t hickened to approximately 2.3 cm There is also a solid 4 x 6 x 4.5 cm more hypoechoic mass seen partially exophytic at the level of th e uterine fundus which probably represents a large fibroid CERVIX: There are no obvious nabothian cysts. OVARIES: Both ovaries were not visualized on this study. CUL-DE-SAC: No free fluid evident. IMPRESSION: 1. Grossly abnormal appearing uterus as described above. The entire endometrial canal is filled with hyperechoic vascular confluence structures suspicious for endometrial malignancy. Appropriate consu ltation recommended. 2. There also appears to be a E 6 cm fibroid at the level the fundus. 3. Both ovaries were not able to be identified both transabdominally and transvaginally. No free flu id in the pelvis evident. Wet read procedure performed DATA REPOSITORY:
== END ==
PROVIDERS: PCP Neuromusculoskeletal Medicine & OMM; Visit Provider Obstetrics & Gynecology
DX: R87.89 Other abnormal findings in specimens from female genital organs (principal); N95.0 Postmenopausal bleeding
CPT/HCPCS: 76830; 76856

== ENCOUNTER 2023-09-17 15:14 | Outpatient (CLI) | payer MEDICARE, OTHER, SELFPAY ==
[2023-09-17 13:50] LABS: Abs Immature Grans 0.03 10^3/uL (0.0-0.06); Absolute Basophil Count 0.03 10^3/uL (0.0-0.2); Absolute Eosinophil Count 0.88 10^3/uL (0.0-0.7); Absolute Lymphocyte Count 0.85 10^3/uL (1.2-3.4); Absolute Neutrophil Count 2.76 10^3/uL (1.2-6.7); Basophils % 0.6; Eosinophils % 17.8; HCT 42.2 % (36.0-46.0); HGB 13.2 g/dL (11.2-15.7); Immature Grans % 0.6; Lymphocytes % 17.2; MCHC 31.3 % (32.0-36.0); MCV 83 fL (80-95); MPV 9.3 fL (8.0-11.0); Monocytes % 8.1; Neutrophils % 55.7; Platelet Count 178 10^3/uL (130-400); RBC 5.07 10^6/uL (3.93-5.22); RDW 18.3 % (11.7-14.6); RDW-SD 54.8 fL; WBC 4.95 10^3/uL (4.4-10.8)
== END 2023-09-17 15:15 | disposition home or self-care (01) ==
LOC: LBO 09-26 15:17
PROVIDERS: PCP Neuromusculoskeletal Medicine & OMM; Visit Provider Radiology Radiation Oncology
DX: C54.1 Malignant neoplasm of endometrium (principal); R35.0 Frequency of micturition
CPT/HCPCS: 36415; 85025

== ENCOUNTER 2023-09-18 14:18 | Outpatient (REF) | payer MEDICARE, OTHER, SELFPAY ==
[2023-09-18 15:50] LABS: Bilirubin Negative (Negative); Blood Negative (Negative); Clarity Clear (Clear); Glucose >=1000 mg/dL (Negative); Ketones Negative (Negative); Leukocyte Esterase Trace (Negative); Nitrite Negative (Negative); Specific Gravity 1.015 (1.005-1.025); Urobilinogen 0.2 mg/dL (Up to 0.2)
[2023-09-18 16:00] LABS: Bacteria Rare HPF (Negative); C & S Indicated? No; Casts Negative LPF (Negative); Crystals Negative HPF (Negative); Epithelial Cells Moderate HPF (Negative); Mucus Negative (Negative); Other Cells Rare Transitional (Negative); RBC Negative HPF (0-2)
== END 2023-09-18 14:19 | disposition home or self-care (01) ==
LOC: LBN 14:18
PROVIDERS: PCP Neuromusculoskeletal Medicine & OMM; Visit Provider Radiology Radiation Oncology
DX: R35.0 Frequency of micturition (principal); R82.998 Other abnormal findings in urine
CPT/HCPCS: 81003; 81015

== ENCOUNTER → 2023-12-20 01:12 | Outpatient (CLI) | payer MEDICARE, OTHER, SELFPAY ==
--- NOTE | 2023-12-20 07:00 | DI.MRI_ITS ---
Exam(s) MR IAC BRAIN WO/W EXAM: MR IAC BRAIN WO/W CLINICAL HISTORY: asymm hearing loss vibha, tinnitus rt ear, H93.11, H93.291 TECHNIQUE: Multiplanar multisequence MRI of the brain was performed. Both noninfused and contrast i nfused sequences were performed. IV Contrast injected was cc Dotarem. COMPARISON: No exams were available for comparison FINDINGS: CEREBRAL PARENCHYMA: No evidence of intracranial hemorrhage, mass effect nor shift of midline structu re. No extraaxial fluid collections. Ventricles are not enlarged nor shifted. There is no significant focal signal abnormality in the cerebellar hemispheres nor within the naresh, m idbrain, and thalami. There are multiple foci of FLAIR bright signal abnormality in the periventricular white matter consis tent with chronic small vessel disease. These are not associated with hemorrhage nor surrounding mariana ma nor restricted diffusion. Also no enhancement following contrast injection. IAC's: There are no masses in the cerebellopontine angles and there is no evidence of intra canalicul ar acoustic neuroma. The 7th and 8th nerves within the internal auditory canals appear unremarkable bilaterally. There are no ring enhancing lesions in the brain. There is no abnormal meningeal enhancement. PITUITARY GLAND: No mass nor parasellar abnormality. No obvious abnormality in the cavernous sinuses. FLOW VOIDS: The expected flow void are noted. No evidence of obvious aneurysm nor obvious vascular ma lformation. PARANASAL SINUSES: The visualized paranasal sinuses appear unremarkable. ORBITS: No obvious abnormal findings. IMPRESSION: 1. No evidence of acoustic neuroma-schwannoma, as per request. 2. There are multiple foci of FLAIR bright signal abnormality in the bilateral periventricular white matter which are not associated with hemorrhage, surrounding edema, restricted diffusion, nor enhance ment. These are most probably consistent with chronic ischemic white matter changes. 3. There are no ring enhancing lesions in the brain and there is no abnormal meningeal enhancement. DATA REPOSITORY:
[2023-12-20] MEDS: Gadoterate meglumine 20 ML SYRINGE IVP (09:41)
[2023-12-20] MEDS: Normal Saline Flush 10 ML SYR IVP (09:41)
== END ==
PROVIDERS: PCP Nurse Practitioner Family; Visit Provider Physician Assistant
DX: H93.11 Tinnitus, right ear (principal); H93.291 Other abnormal auditory perceptions, right ear; H90.3 Sensorineural hearing loss, bilateral
CPT/HCPCS: 70553

== ENCOUNTER 2024-01-20 12:11 | Emergency (ER) | payer MEDICARE, OTHER, SELFPAY ==
[2024-01-20 12:16] VITALS: BP 142/75; PULSE 98; RESP 16; TEMP 36.4; O2SAT 94
[2024-01-20 12:37] LABS: Bilirubin Small (Negative); Blood Negative (Negative); Clarity Sl Cloudy (Clear); Glucose Negative (Negative); Ketones Trace mg/dL (Negative); Leukocyte Esterase Negative (Negative); Nitrite Negative (Negative); Specific Gravity >= 1.030 (1.005-1.025); Urobilinogen 0.2 mg/dL (Up to 0.2); pH 5.5 (5-8)
--- NOTE | 2024-01-20 12:45 | DI.RAD_ITS ---
Exam(s) XR HIP RT COMPLETE AP PELVIS EXAM: XR HIP RT COMPLETE AP PELVIS CLINICAL HISTORY: right hip pain. TECHNIQUE: 2D digital imaging was performed. COMPARISON: No exams were available for comparison FINDINGS: Two views: No evidence of pelvic nor right hip fracture. Additional lateral view of the right hip does not reve al joint space narrowing nor osteophytes. On the opposite-left side there is dystrophic calcification just above the greater trochanter measuri ng 1.8 by 0.6 cm. Sacroiliac joints and symphysis pubis appear unremarkable. L4-5 left-sided disc space narrowing note d. IMPRESSION: No acute osseous findings in the right hip. Some dystrophic calcification measuring 18 x 6 mm noted left hip region DATA REPOSITORY: RADIATION DOSE DELIVERED:
--- NOTE | 2024-01-20 14:24 | ED.GENADUL_ITS ---
Discharge Plan Disposition Patient Disposition: Home Discharge Details Clinical Impression: Acute pain of right hip Primary Care Provider: Tisha Beach ED Provider: Priya Potter Home Meds and New Rx's Prescriptions: No Action Eliquis 5 mg tablet 5 mg PO DAILY Discharge Instructions Instructions: Hip Pain ED Additional Instructions: * Imaging today is unremarkable * Please continue Tylenol 650 mg to 1000 mg every 6 hours * can use this with the topical Voltaren gel * Please follow-up with physical therapy. Referral sheet provided * If symptoms are not improving or you are having worsening difficulty with walking, please return to emergency department or follow-up with your PCP for reevaluation. You may need referral to orthopedics for further evaluation and treatment. HPI General Date/Time Provider Initiated Documentation: 01/20/24 12:13 . Limitations to Documentation: no limitations . Information obtained by: patient . HPI Narrative: 73-year-old female with past medical history of diabetes presents for evaluation of right hip pain. She reports that the pain started a few days ago after getting out of bed. She denies any fall or trauma. She localizes the pain to the outer right hip. It does not hurt if she is not moving or if she is laying flat, and only hurts when she is attempting to walk. She has been using a cane to help ambulate and she is generally able to get around okay with this. She has tried some topical Voltaren gel and has taken a few doses of Tylenol without significant relief. She denies any back pain, abdominal pain, change in urinati on, denies any numbness or tingling. Denies any weakness in the right leg Related Data Home Medications ?Medication ?Instructions ?Recorded ?Confirmed apixaban 5 mg tablet (Eliquis) 5 mg PO DAILY 11/22/23 01/20/24 Allergies Allergy/AdvReac Type Severity Reaction Status Date / Time No Known Allergies Allergy Verified 01/20/24 12:15 General Stated Complaint: Orthopedic SANTANA: 3 Exam Narrative Exam Narrative: Review of Systems: All systems reviewed & are unremarkable except as noted in HPI and below Well-developed, no acute distress NCAT PERRL, normal conjunctiva RRR Unlabored respiratory effort Nondistended abdomen nontender, no CVA tenderness, no midline back tenderness Extremities w/o deformity, no cyanosis, no edema She has no inguinal tenderness or hernia appreciated, she has some lateral hip pain over the greater trochanter No rashes or lesions. no focal neurologic deficits Appropriate mood and affect Course Vital Signs Vital signs: Vital Signs Temperature 36.4 C L 01/20/24 12:16 Pulse 98 H 01/20/24 12:16 Respiratory Rate 16 01/20/24 12:16 Blood Pressure 142/75 H 01/20/24 12:16 Pulse Oximetry 94 01/20/24 12:16 Temperature 36.4 C L 01/20/24 12:16 Temperature Source Temporal Artery Scan 01/20/24 12:16 Pulse 98 H 01/20/24 12:16 Respiratory Rate 16 01/20/24 12:16 Respiratory Effort Normal, Non-Labored 01/20/24 12:18 Blood Pressure 142/75 H 01/20/24 12:16 Blood Pressure Position Sitting 01/20/24 12:16 Pulse Oximetry 94 01/20/24 12:16 Oxygen Delivery Method Room Air 01/20/24 12:16 Oxygen Flow Rate 0 01/20/24 12:16 Pain Level 8 01/20/24 12:35 Lab/Test Results Lab/Test Results: Laboratory Tests Range/Units 01/20/24 12:30 Urine Color (Yellow) Yellow Urine Clarity (Clear) Sl Cloudy Urine pH (5-8) 5.5 Ur Specific Twining (1.005-1.025) >= 1.030 H Urine Protein (Neg-Trace) mg/dL Trace Urine Ketones (Negative) mg/dL Trace H Urine Blood (Negative) Negative Urine Nitrite (Negative) Negative Urine Bilirubin (Negative) Small H Urine Urobilinogen (Up to 0.2) mg/dL 0.2 Ur Leukocyte Esterase (Negative) Negative Urine Glucose (Negative) mg/dL Negative Medical Decision Making Emergent evaluation of atraumatic right hip pain. Patient does not have any history of cancer or IV drug use concerning for lumbar pain or epidural abscess. She fact does not have any back pain and the pain is localized to the hip. Also considered possible intra-abdominal pathology, but her abdominal exam is benign and she has no CVA tenderness. Urinalysis was obtained, this does not have any signs of infection or hematuria concerning for possible renal stone as an etiology of the symptoms. I suspect that there is some degenerative change, possible bursitis. X-ray imaging was obtained and this is unremarkable for acute process. Patient was provided information for follow-up with physical therapy. Return precautions advised. Recommend continued Tylenol. Unfortunately given her medical history taking NSAIDs is not advised and the patient is not interested in any stronger pain medication. Medical Records Medical records reviewed: Yes I reviewed the patient's medical records. Lab Data Lab results reviewed: Yes I reviewed the patient's lab results. Quality:SDOH Health Related Social Needs: No Data to Display PFSH All Active Problems Acute pain of right hip (Acute) Tinnitus, right ear (Acute) Impairment of auditory discrimination in right ear (Acute) Asymmetrical sensorineural hearing loss (Acute) Thrush, oral (Acute) Thickened endometrium (Acute) Well woman exam with routine gynecological exam (Acute) Post-menopausal bleeding (Acute) Pyoderma gangrenosum (Acute) Diabetes type 2, controlled (Acute) Pelvic organ prolapse quantification stage 3 cystocele (Acute) Tinnitus (Acute) Sensorineural hearing loss of both ears (Acute) Nuclear sclerotic cataract of right eye (Acute) Cortical cataract of right eye (Acute) Medical History Hx of pyoderma gangrenosum History of adverse reaction to anesthesia Per note during hysterectomy 50 years ago Pt. stated didn't wake up for a long time, it took hours for them to wake me up Diabetes mellitus History of endometrial biopsy Pain in left knee Pain, joint, shoulder, right Cellulitis of right lower limb Impaired fasting glucose Chest pain Pt.states this was 4-5 years, pt stated it was stress related Pain, lower leg Non-pressure ulcer of lower extremity Sleep-wake disorder Urinary tract infection Chronic fatigue syndrome pt. denies Vitamin D deficiency Osteoporosis Surgical History Hx of cataract surgery Hx of tubal ligation History of hysterectomy Pt denies; states I had tubal ligation 12/23/20 Social History Smoking/Tobacco Use Status: Former Tobacco Use Quit Date: 06/17/04 Tobacco: How many years used: 25 Smoking risk assessment performed?: Yes Alcohol Intake: never Drug use: Never Substance use type: does not use Housing: house Number of Children: 2 What is your relationship status?: Panel score (0-1 are the most socially isolated patients): 0 Seatbelt use: always Do you feel safe at home: Yes Do you feel safe in your relationship?: Yes History History 2 Para Hx # Term Pregnancies 2 Multiple births Hx # Pregnancies Ectopic pregnancies AB induced Hx Number of Living Children AB spontaneous
== END 2024-01-20 14:04 | disposition home or self-care (01) ==
PROVIDERS: Emergency Provider Emergency Medicine; PCP Nurse Practitioner Family
DX: M25.551 Pain in right hip (principal); E11.9 Type 2 diabetes mellitus without complications; Z79.01 Long term (current) use of anticoagulants; Z87.891 Personal history of nicotine dependence
CPT/HCPCS: 99284; 73502; 81003; 99283

== ENCOUNTER 2024-02-20 15:31 | Outpatient (CLI) | payer MEDICARE, OTHER, SELFPAY ==
[2024-02-20 14:04] LABS: CREATININE 0.8 mg/dL (0.55-1.02); Estimated GFR 76.79 (mL/min/1.73m2)
== END 2024-02-20 15:32 | disposition home or self-care (01) ==
LOC: LBO 15:31
PROVIDERS: PCP Nurse Practitioner Family; Referring Provider Radiology Radiation Oncology; Visit Provider Radiology Radiation Oncology
DX: Z92.3 Personal history of irradiation (principal); C54.1 Malignant neoplasm of endometrium; M25.551 Pain in right hip
CPT/HCPCS: 36415; 82565

== ENCOUNTER → 2024-09-07 13:26 | Outpatient (BNVA) | payer MEDICARE, OTHER, SELFPAY | PROVIDERS: PCP Nurse Practitioner Family; Visit Provider Student in an Organized Health Care Education/Training Program | DX: M46.1 Sacroiliitis, not elsewhere classified (principal) | CPT/HCPCS: 99213 ==